=== PATIENT | female | born 1960 | race Caucasian/White ===

== ENCOUNTER 2017-06-02 10:55 | Day surgery (SDC) | payer BC ==
[2017-06-01 08:13] VITALS: BMI 18.8
[~2017-06-02 10:55] MED LIST: LACTATED RINGERS 1,000 ML IV ONE; LIDOCAINE 1% 20 ML VIAL (10MG/ML) FOR IV START INTRADERMA PRN
[2017-06-02] MEDS ORDERED: LACTATED RINGERS 1,000 ML IV ONE (11:48)
[2017-06-02 11:49] VITALS: TEMP 98.4
[2017-06-02] MEDS ORDERED: PROPOFOL 10 MG/ML 20 ML VIAL IV ONE (12:21)
--- NOTE | 2017-06-02 12:41 | P.PCN ---
Date of Procedure: 06/02/17 Procedure(s) Performed: BRIEF HISTORY: Patient is a 56-year-old pleasant white female, scheduled for an elective colonoscopy as a part of evaluation of Hemoccult-positive stool. PROCEDURE PERFORMED: Colonoscopy with biopsy and snare polypectomy. PREOPERATIVE DIAGNOSIS: Hemoccult positive stool. IV sedation per Anesthesia. PROCEDURE: After informed consent was obtained, the patient, was brought into the endoscopy unit. IV sedation was administered by Anesthesia under continuous monitoring. Digital rectal examination was normal. Initially the Olympus CF- 160 flexible video colonoscope was then inserted in the rectum, gradually advanced into the cecum without any difficulty. Careful examination was performed as the scope was gradually being withdrawn. Ileocecal valve and the appendiceal orifice were visualized and appeared normal. Prep was excellent. Mucosa of the cecum, ascending colon, transverse colon, descending colon, appeared normal. There are scattered sigmoidal diverticula seen. In the sigmoid colon there were patchy areas of erythema noted and biopsies were done from this area. There were 2 polyps noted in the sigmoid colon one measuring 1 cm in size and was removed by snare polypectomy and the other polyp was more like a thickened mucosal fold measuring 1-2 cm, which was inflamed and was also removed by snare polypectomy. The rest of the sigmoid colon, and rectum appeared normal. Retroflexion was performed in the rectum and no lesions were seen. The patient tolerated the procedure well. IMPRESSION: 1 cm sigmoid colon polyp status post polypectomy Patchy areas of erythema with inflamed appearing mucosa noted in the sigmoid colon between 20-40 cm from the anal verge and these areas were biopsied. Scattered sigmoid diverticulosis RECOMMENDATIONS: Findings of this examination were discussed with the patient as well as a family. She was advised to have a follow with the biopsy results. If the biopsy shows a tubular adenoma she can have a repeat colonoscopy in 3 years.
[2017-06-02 13:14] VITALS: BP 131/82; PULSE 57; RESP 16
== END 2017-06-02 13:21 | disposition home or self-care (01) ==
LOC: ORWHC2ENDO 10:55
PROVIDERS: ATTEND Internal Medicine Gastroenterology
DX: D12.5 Benign neoplasm of sigmoid colon (principal); K57.30 Diverticulosis of large intestine without perforation or abscess without bleeding; I10 Essential (primary) hypertension; F17.210 Nicotine dependence, cigarettes, uncomplicated; L53.9 Erythematous condition, unspecified; M19.90 Unspecified osteoarthritis, unspecified site; Z91.048 Other nonmedicinal substance allergy status; Z79.891 Long term (current) use of opiate analgesic; Z79.899 Other long term (current) drug therapy
CPT/HCPCS: 88305; 45385; 45380; J2704

== ENCOUNTER 2017-09-08 10:09 | Emergency (ER) | payer BC ==
[2017-09-08 10:31] VITALS: BP 161/88; PULSE 60; RESP 20; TEMP 98
--- NOTE | 2017-09-08 12:24 | XR ---
EXAMINATION TYPE: XR humerus LT DATE OF EXAM: 09/08/2017 CLINICAL HISTORY: Fall injury with pain. TECHNIQUE: Two views of the left humerus are obtained. COMPARISON: None. FINDINGS: Osseous structures are somewhat demineralized. There is no acute fracture or dislocation s een in the left humerus. The left shoulder and elbow joints appear within normal limits. The overly ing soft tissue appears within normal limits. IMPRESSION: No acute fracture or dislocation is evident in the left humerus.
--- NOTE | 2017-09-08 12:53 | ED ---
General Adult HPI - General Chief complaint: Extremity Injury, Upper Stated complaint: Shoulder Injury Time Seen by Provider: 09/08/17 11:28 Source: patient, family, RN notes reviewed Mode of arrival: ambulatory Limitations: no limitations - History of Present Illness Initial comments: Chief complaint and history of present illness this is a 56-year-old female with complaint of discomfort to her proximal lateral left humerus. You have the deltoid muscle. Patient reports last night she was walking her dog which is a big dog. It pulled on her and pulled her over onto her shoulder. Denies any head or neck or other injuries. She does take Vicodin 7.5 mg for chronic arthritic pain. Patient presents with decreased range of motion in this area. - Related Data Home Medications Medication Instructions Recorded Confirmed Hydrocodone/Acetaminophen 1 tab PO QID PRN 06/01/17 09/08/17 [Hydrocodon-Acetaminoph 7.5-325] Valsartan/Hydrochlorothiazide 1 tab PO DAILY 06/01/17 09/08/17 [Valsartan-Hctz 320-25 mg Tab] amLODIPine [Norvasc] 2.5 mg PO DAILY 06/01/17 09/08/17 Glucosamine/Chondro Kuhn A [Cosamin 1 tab PO DAILY 09/08/17 09/08/17 Ds Tablet] Allergies Allergy/AdvReac Type Severity Reaction Status Date / Time Iodinated Contrast- Oral and AdvReac Vomiting Verified 09/08/17 11:51 IV Dye [Iodinated Contrast Media - IV Dye] iodine AdvReac Vomiting Verified 09/08/17 11:51 Review of Systems ROS Statement: Those systems with pertinent positive or pertinent negative responses have been documented in the HPI. Review of systems no other complaints no headache chest pain shows breath GI/ problems no neuro deficits. All systems were reviewed. Past medical problems significant for hypertension, osteoarthritis, rheumatoid arthritis, she had rectal bleeding followed up by colonoscopy was reported by family to be negative. Surgeries D&C, tonsillectomy. Family history mother had breast cancer. The patient has been getting her mammograms. Her surgeries tonsillectomy and D&C. Patient has ALLERGIES to iodine both IV and oral. She does smoke strongly encouraged to stop denies alcohol use. ROS Other: All systems not noted in ROS Statement are negative. Past Medical History Past Medical History: Hypertension, Osteoarthritis (OA), Rheumatoid Arthritis ( RA) Additional Past Medical History / Comment(s): occ rectal bleeding, History of Any Multi-Drug Resistant Organisms: None Reported Past Surgical History: Tonsillectomy Additional Past Surgical History / Comment(s): D&C, Past Anesthesia/Blood Transfusion Reactions: No Reported Reaction Past Psychological History: No Psychological Hx Reported Smoking Status: Current every day smoker Past Alcohol Use History: None Reported Past Drug Use History: None Reported - Past Family History Mother Family Medical History: Cancer General Exam - General Exam Comments Initial Comments: General: The patient is awake and alert, here with a complaint of pain to the proximal left humerus. Vital signs temperature 90.0 pulse 60. Respiratory rate 20 pulse ox on percent room air blood pressure 161/88 Eye: Pupils are equal, round and reactive to light, extra-ocular movements are intact ; there is normal conjunctiva bilaterally. No signs of icterus. Neck: The neck is supple, there is no tenderness or JVD. Cardiovascular: There is a regular rate and rhythm. No murmur, rub or gallop is appreciated. Respiratory: Lungs are clear to auscultation, respirations are non-labored, breath sounds are equal. No wheezes, stridor, rales, or rhonchi. Gastrointestinal: Soft, non-distended, non-tender abdomen without masses or organomegaly noted. There is no rebound or guarding present. No CVA tenderness. Bowel sounds are unremarkable. Back: There is no tenderness to palpation in the midline. There is no obvious deformity. No rashes noted. Musculoskeletal: All extremities normal except for discomfort to the proximal left humerus. Over the deltoid muscle. Pain with palpation. Pain with active movement. Significantly less discomfort with passive range of motion testing. Neurovascular status to hands intact. No pain to the elbow or forearm. No pain to the collarbone or scapula or neck. Neurological: No neuro deficits Skin: Skin is warm and dry and no rashes or lesions are noted. Limitations: no limitations Course Vital Signs 09/08/17 10:29 Temperature 98.0 F Pulse Rate 60 Respiratory 20 Rate Blood Pressure 161/88 O2 Sat by Pulse 100 Oximetry Medical Decision Making - Medical Decision Making Medical decision making; with 56-year-old female who was pulled off balance onto her left shoulder by her big dog. X-ray of the shoulder was done and reviewed by radiologist his impression is no acute fracture dislocation is evident in the left humerus as read by Dr. simon. The patient be placed in a sling for comfort and advised to use it every half an hour. Continue with home medications and add ibuprofen or naproxen if she is allowed to take these medications. Otherwise if shoulder pain persists to follow-up with family physician and on-call or so Disposition Clinical Impression: Left shoulder strain Disposition: HOME SELF-CARE Condition: Fair Instructions: Shoulder Sprain (ED) Additional Instructions: Wear sling for comfort. Remember to exercise shoulder area several times per hour. Continue with home pain medication and if needed ibuprofen. Allowed to take it. Take it with food. Follow-up with your family doctor and on-call or so if you don't have an orthopedic surgeon. Is patient prescribed a controlled substance at d/c from ED?: No Referrals: Calvin Kaiser MD [Primary Care Provider] - 1-2 days Demetris Taylor DO [Doctor of Osteopathic Medicine] - 1-2 days Time of Disposition: 12:54
== END 2017-09-08 13:14 | disposition home or self-care (01) ==
LOC: EC 10:09
DX: S46.912A Strain of unspecified muscle, fascia and tendon at shoulder and upper arm level, left arm, initial encounter (principal); I10 Essential (primary) hypertension; M06.9 Rheumatoid arthritis, unspecified; F17.200 Nicotine dependence, unspecified, uncomplicated; Z79.899 Other long term (current) drug therapy; Z91.041 Radiographic dye allergy status; Z91.048 Other nonmedicinal substance allergy status; X50.9XXA Other and unspecified overexertion or strenuous movements or postures, initial encounter; Y93.K1 Activity, walking an animal
CPT/HCPCS: 99283

== ENCOUNTER → 2019-08-30 | Outpatient (CLI) | payer BC ==
[2019-08-30 12:49] LABS: Basophils # (A) 0.1 k/uL (0-0.2); Basophils % (A) 1 %; Eosinophils # (A) 0.1 k/uL (0-0.7); Eosinophils % (A) 1 %; HGB 11.9 gm/dL (11.4-16.0); Lymphocytes # (A) 0.9 k/uL (1.0-4.8); Lymphocytes % (A) 11 %; MCH 36.4 pg (25.0-35.0); MCHC 33.2 g/dL (31.0-37.0); MCV 109.6 fL (80.0-100.0); Macrocytosis Moderate; Mean Platelet Volume 6.9; Monocytes # (A) 0.5 k/uL (0-1.0); Monocytes % (A) 6 %; Neutrophils # (A) 6.6 k/uL (1.3-7.7); Neutrophils % (A) 78 %; Platelet Count 356 k/uL (150-450); RBC 3.28 m/uL (3.80-5.40); RDW 12.3 % (11.5-15.5); WBC 8.4 k/uL (3.8-10.6)
[2019-08-30 12:58] LABS: Appearance,Urine Cloudy (Clear); Bilirubin,Urine 1+ (Negative); Blood,Urine Small (Negative); Color,Urine Yellow; Glucose,Urine (UA) Negative (Negative); Hyaline Casts,Urine 51 /lpf (0-2); Ketones,Urine Trace (Negative); Leukocyte Esterase,Urine Negative (Negative); Mucus,Urine Rare /hpf; Nitrite,Urine Negative (Negative); PH, Urine 5.5 (5.0-8.0); Protein,Urine 1+ (Negative); RBC,Urine 8 /hpf (0-5); Specific Gravity,Urine 1.027 (1.001-1.035); Squamous Epithelial Cell,Urine 6 /hpf (0-4); WBC,Urine 2 /hpf (0-5)
[2019-08-30 18:43] LABS: African American GFR (CKD) 81.1 (60.0-200.0); Albumin 4.4 g/dL (3.80-4.90); Anion Gap 8.7 mmol/L (4.00-12.00); BUN/Creat Ratio 11.11 Ratio (12.00-20.00); Calcium 9.4 mg/dL (8.7-10.3); Carbon Dioxide 26.3 mmol/L (21.6-31.8); Chol/HDL Ratio 2.55; Globulin 2.2 g/dL (1.6-3.3); LDL Cholesterol,Calculated 55.6 mg/dL (0.0-131.0); Potassium 4.3 mmol/L (3.5-5.5); Total Protein 6.6 g/dL (6.2-8.2); VLDL Calculation 31.4 mg/dL (5.00-40.00)
== END | disposition home or self-care (01) ==
LOC: LABWHC1 12:03
PROVIDERS: ATTEND Internal Medicine
DX: I10 Essential (primary) hypertension (principal); E55.9 Vitamin D deficiency, unspecified
CPT/HCPCS: 36415; 80053; 80061; 81001; 82306; 85025

== ENCOUNTER → 2019-10-22 | Outpatient (CLI) | payer BC ==
--- NOTE | 2019-10-22 18:07 | CTL ---
EXAMINATION TYPE: CT Low Dose Lung DATE OF EXAM ORDERED: 10/22/2019 HISTORY: . Lung cancer screening CT DLP: 39.[address] CTDI: 1 mGy Automated exposure control for dose reduction was used. SCREENING VISIT: Initial COMPARISON: None TECHNIQUE: Low dose computed tomography scan was performed through the chest at 1 mm thick sections a nd reconstructed images in the coronal plane at [address] DIAGNOSTIC QUALITY: Satisfactory FINDINGS: LUNG NODULES: Present, detailed below: There is a 0.3 cm density at the peripheral right apex. Series 4 image 59. A tiny area of increased densities in the anterior right upper lung field measuring 0.1 cm. Series 4 image 69. LUNGS: COPD: Severity: None Fibrosis: Severity: None Lymph nodes: None Other findings: None RIGHT PLEURAL SPACE: Effusion: None Calcification: None Thickening: None Pneumothorax: None LEFT PLEURAL SPACE: Effusion: None Calcification: None Thickening: None Pneumothorax: None HEART: Heart Size: Normal Coronary calcification: Moderate Pericardial effusion: None OTHER FINDINGS: Upper abdomen: Unremarkable Bony thorax: Normal Supraclavicular region: Normal Other: Ascending thoracic aorta at the level the main pulmonary artery measures 3.3 cm. The main pul monary artery at the bifurcation measures 2.5 cm. IMPRESSION: 1. Benign findings FOLLOW UP CT CHEST RECOMMENDATION: Follow-up low-dose CT chest [address] LUNG RAD: Lung-Rad 2 Benign Appearance or Behavior
== END | disposition home or self-care (01) ==
LOC: RADCTMAIN 08:01
PROVIDERS: ATTEND Internal Medicine
DX: Z12.2 Encounter for screening for malignant neoplasm of respiratory organs (principal); Z87.891 Personal history of nicotine dependence

== ENCOUNTER 2020-02-24 09:45 | Day surgery (SDC) | payer BC ==
[2020-02-21 12:21] VITALS: BMI 17.6
[~2020-02-24 09:45] MED LIST changes: -LACTATED RINGERS 1,000 ML IV ONE; +LACTATED RINGERS 1,000 ML IV SCH; +LIDOCAINE 1% (10MG/ML) FOR IV START INTRADERMA PRN; -LIDOCAINE 1% 20 ML VIAL (10MG/ML) FOR IV START INTRADERMA PRN
[2020-02-24 10:11] VITALS: TEMP 97.8
[2020-02-24] MEDS ORDERED: LACTATED RINGERS 1,000 ML IV ONE (10:12)
[2020-02-24] MEDS ORDERED: PROPOFOL 10 MG/ML 20 ML VIAL IV ONE (11:04)
[2020-02-24] MEDS ORDERED: LIDOCAINE 1% INJ 10MG/ML (20 ML MDV) ONE (11:04)
--- NOTE | 2020-02-24 11:19 | P.PCN ---
Date of Procedure: 02/24/20 Procedure(s) Performed: BRIEF HISTORY: Patient is a 59-year-old, pleasant, 8 female scheduled for an upper endoscopy as a part of evaluation of intermittent dysphagia to solids and epigastric pain for the last several months duration.. PROCEDURE PERFORMED: Esophagogastroduodenoscopy biopsy and dilation. PREOPERATIVE DIAGNOSIS: Epigastric pain/intermittent dysphagia to solids. IV sedation per anesthesia. PROCEDURE: After informed consent was obtained, the patient was brought into the endoscopy unit. IV sedation was administered by Anesthesia under continuous monitoring. Initially the Olympus GIF-140 video endoscope was inserted into the mouth. Esophagus intubated without any difficulty. It was gradually advanced into the stomach and duodenum and carefully examined. The bulb and the second part of the duodenum appeared normal. The scope at this time was withdrawn to the stomach, adequately insufflated with air, and upon careful examination, mucosa of the antrum had mild gastritis and biopsies were done from this area. The, body, cardia and the fundus appeared normal. The scope was then withdrawn into the esophagus. Small hiatal hernia noted. The GE junction was located at 39 cm from the incisors. Distal esophageal Schatzki's ring identified which was dilated using 15-18 mm TTS balloon in a sequential fashion for 90 seconds. There were linear erosions in the distal esophagus and superficial ulceration consistent with LA grade C reflux esophagitis. The rest of the esophagus appeared normal and the patient tolerated the procedure well. IMPRESSION: 1. Distal esophageal Schatzki's ring status post balloon dilation using 15-18 mm TTS balloon as described above. 2. Small hiatal hernia with linear erosions in the distal esophagus consistent with LA grade C reflux esophagitis 3. Mild antral gastritis. RECOMMENDATIONS: The findings of this examination were discussed with the patient as well as a family. She was advised to be on a clear liquid diet for lunch. He was started on Protonix 40 mg daily half hour before bedtime and follow antireflux measures..
[2020-02-24 11:27] VITALS: RESP 16
[2020-02-24 11:43] VITALS: BP 125/84; PULSE 81
== END 2020-02-24 12:05 | disposition home or self-care (01) ==
LOC: ORWHC2ENDO 09:45
PROVIDERS: ATTEND Internal Medicine Gastroenterology
DX: K22.2 Esophageal obstruction (principal); K29.50 Unspecified chronic gastritis without bleeding; K20.0 Eosinophilic esophagitis; K44.9 Diaphragmatic hernia without obstruction or gangrene; I10 Essential (primary) hypertension; F17.200 Nicotine dependence, unspecified, uncomplicated; K21.9 Gastro-esophageal reflux disease without esophagitis; Z97.2 Presence of dental prosthetic device (complete) (partial); Z79.891 Long term (current) use of opiate analgesic; Z79.899 Other long term (current) drug therapy; Z91.041 Radiographic dye allergy status; Z91.048 Other nonmedicinal substance allergy status
CPT/HCPCS: 88305; 43239; 43249; J2001; J2704; C1726

== ENCOUNTER → 2020-02-25 | Outpatient (CLI) | payer BC ==
--- NOTE | 2020-02-25 12:38 | US ---
EXAMINATION TYPE: US liver DATE OF EXAM: 02/25/2020 COMPARISON: NONE CLINICAL HISTORY: R74.01 ELEVATED LIVER TRANSAMINASE. Abnormal labs. No prior surgeries. EXAM MEASUREMENTS: Liver Length: 13.2 cm Gallbladder Wall: 0.2 cm CBD: 0.6 cm Right Kidney: 1.0 x 4.2 x 4.2 cm Pancreas: wnl Liver: wnl Gallbladder: wnl Evidence for sonographic Martinez's sign: neg CBD: wnl Right Kidney: No hydronephrosis or masses seen IMPRESSION: 1. Visualized right upper quadrant ultrasound is unremarkable.
--- NOTE | 2020-02-26 11:54 | MM ---
Reason for exam: screening (asymptomatic). Last mammogram was performed 3 years ago. History: Patient is postmenopausal. Family history of breast cancer in mother at age 59. Physical Findings: A clinical breast exam by your physician is recommended on an annual basis and results should be correlated with mammographic findings. MG Screening Mammo w CAD Bilateral CC and MLO view(s) were taken. Prior study comparison: February 22, 2017, bilateral MG screening mammo w CAD. The breast tissue is extremely dense which could obscure a lesion on mammography. No significant changes when compared with prior studies. ASSESSMENT: Negative, BI-RAD 1 RECOMMENDATION: Routine screening mammogram of both breasts in 1 year.
== END | disposition home or self-care (01) ==
LOC: RADUSWWP 07:00
PROVIDERS: ATTEND Internal Medicine
DX: Z12.31 Encounter for screening mammogram for malignant neoplasm of breast (principal); R74.01 Elevation of levels of liver transaminase levels
CPT/HCPCS: 76705; 77067

== ENCOUNTER → 2020-12-09 | Day surgery (SDC) | payer BC ==
[2020-12-04 10:20] VITALS: BMI 17.4
[~2020-12-09] MED LIST changes: -LIDOCAINE 1% (10MG/ML) FOR IV START INTRADERMA PRN; +PROPOFOL 10 MG/ML 20 ML VIAL IV ONE
[2020-12-09 10:37] VITALS: TEMP 98.3
--- NOTE | 2020-12-09 11:52 | P.PCN ---
Date of Procedure: 12/09/20 Procedure(s) Performed: BRIEF HISTORY: Patient is a 60-year-old pleasant female scheduled for an elective colonoscopy as a part of evaluation of prior history of colon polyps. Last coloscopy was 3 years ago PROCEDURE PERFORMED: Colonoscopy and polypectomy and Endo Clip placement PREOPERATIVE DIAGNOSIS: History of colon polyps and change in bowel habits. IV sedation per Anesthesia. PROCEDURE: After informed consent was obtained, the patient, was brought into the endoscopy unit. IV sedation was administered by Anesthesia under continuous monitoring. Digital rectal examination was normal. Initially the Olympus CF-160 flexible video colonoscope was then inserted in the rectum, gradually advanced into the cecum without any difficulty. Careful examination was performed as the scope was gradually being withdrawn. Ileocecal valve and the appendiceal orifice were visualized and appeared normal. Prep was fair. Mucosa of the cecum, ascending colon, transverse colon, descending colon, normal. In the proximal; about 35 cm from the anal was there was a 2 cm broad-based polyp which had an appearance of a thickened mucosal fold which was removed by snare polypectomy followed by Endo Clip placement. In the rectal sigmoid colon there were 2 polyps measuring 1 cm and 2 cm once again with erythematous folds which were removed by snare polypectomy. In the mid rectum there was a 1 cm polyp removed by snare polypectomy. Scattered sigmoid diverticula seen. Retroflexion was performed in the rectum and no lesions were seen. The patient tolerated the procedure well. IMPRESSION: 2 cm broad-based proximal sigmoid colon polyp status post polypectomy followed by Endo Clip placement 2 cm and 1 cm rectosigmoid polyp status post polypectomy 1 cm rectal polyp status post polypectomy Scattered sigmoid diverticulosis RECOMMENDATIONS: Findings of this examination were discussed with the patient as well as her family. She was advised to follow with the biopsy shows. If the biopsy shows adenoma she can have a repeat colonoscopy in 3 years..
[2020-12-09 12:12] VITALS: BP 112/76; PULSE 81; RESP 16
== END ==
LOC: ORWHC2ENDO 10:00
PROVIDERS: ATTEND Internal Medicine Gastroenterology
DX: K57.30 Diverticulosis of large intestine without perforation or abscess without bleeding (principal); K62.1 Rectal polyp; D12.7 Benign neoplasm of rectosigmoid junction; I10 Essential (primary) hypertension; F17.200 Nicotine dependence, unspecified, uncomplicated; K21.9 Gastro-esophageal reflux disease without esophagitis; Z86.010 Personal history of colon polyps
CPT/HCPCS: 45385; 45382; 88305; J2704

== ENCOUNTER 2021-05-05 06:31 | Inpatient (IN) | payer BC ==
[2021-05-05] MEDS ORDERED: DEXTROSE 50% SYRINGE 50 ML IVP STA (06:49)
[2021-05-05 07:04] LABS: Glucose,Whole Blood <20 mg/dL (75-99)
[2021-05-05 07:04] LABS: Glucose,Whole Blood <20 mg/dL (75-99)
[2021-05-05 07:18] LABS: Albumin 1.5 g/dL (3.5-5.0); Total Bilirubin 2.1 mg/dL (0.2-1.3); Total Protein 3.6 g/dL (6.3-8.2)
[2021-05-05 07:19] LABS: Basophils % (A) 0 %; Eosinophils % (A) 1 %; HCT 26.1 % (34.0-46.0); HGB 8.5 gm/dL (11.4-16.0); Lymphocytes # (A) 0.3 k/uL (1.0-4.8); Lymphocytes % (A) 19 %; MCH 37.7 pg (25.0-35.0); MCHC 32.7 g/dL (31.0-37.0); MCV 115.4 fL (80.0-100.0); Macrocytosis Marked; Mean Platelet Volume 9.6; Monocytes # (A) 0.1 k/uL (0-1.0); Monocytes % (A) 5 %; Neutrophils # (A) 1.3 k/uL (1.3-7.7); Neutrophils % (A) 72 %; Platelet Count 157 k/uL (150-450); RBC 2.26 m/uL (3.80-5.40); RDW 13.5 % (11.5-15.5); WBC 1.8 k/uL (3.8-10.6)
[2021-05-05] MEDS ORDERED: SODIUM CHLORIDE 0.9% 1,000 ML IV ONE ×4 (07:19→23:42)
[2021-05-05 07:20] LABS: INR 2.3 (<1.2); Partial Thromboplastin Time 40.1 sec (22.0-30.0); Prothrombin Time 22.7 sec (9.0-12.0)
[2021-05-05] MEDS ORDERED: DEXTROSE 5%-0.45% NACL 1,000 ML IV ONE (07:20)
[2021-05-05 07:23] LABS: Glucose,Whole Blood <20 mg/dL (75-99)
[2021-05-05 07:24] LABS: Lactic Acid, Venous 5.3 mmol/L (0.7-2.0); Potassium 2.2 mmol/L (3.5-5.1)
[2021-05-05 07:26] LABS: Calcium 4.8 mg/dL (8.4-10.2); Magnesium 0.5 mg/dL (1.6-2.3)
--- NOTE | 2021-05-05 07:27 | ED ---
General Adult HPI - General Chief complaint: Weakness Stated complaint: Hypoglycemia Time Seen by Provider: 05/05/21 07:00 Source: patient, EMS, RN notes reviewed, old records reviewed Mode of arrival: EMS - History of Present Illness Initial comments: This is a 60-year-old female presents emergency Department because of weakness and decreased responsiveness this morning. states that a few weeks back she started having swelling of the legs and the ankles and becoming weaker and weaker over time. states yesterday he came home and she was so weak she was unable to get up out of bed she was also less responsive. Patient herself states she has had he aches starting yesterday and a sore throat. Patient states she has been vaccinated for COVID and didn't get the booster. Patient denies any fever but states she's freezing. Patient states she is a drinker and has been drinking every night except for the last 2 nights. Patient denies any nausea vomiting or diarrhea however patient does have abdominal pain which she states started yesterday and she states it is diffuse. Patient denies any dysuria hematuria urinary frequency. Patient denies any injury or trauma. - Related Data Home Medications Medication Instructions Recorded Confirmed Hydrocodone/Acetaminophen 1 tab PO QID PRN 06/01/17 05/05/21 [Hydrocodon-Acetaminoph 7.5-325] hydroCHLOROthiazide [Hydrodiuril] 12.5 mg PO DAILY 02/21/20 05/05/21 Pantoprazole [Protonix] 40 mg PO DAILY 05/05/21 05/05/21 amLODIPine [Norvasc] 5 mg PO DAILY 05/05/21 05/05/21 Allergies Allergy/AdvReac Type Severity Reaction Status Date / Time Iodinated Contrast Media AdvReac Vomiting Verified 05/05/21 09:01 [Iodinated Contrast Media - IV Dye] iodine AdvReac Vomiting Verified 05/05/21 09:01 Review of Systems ROS Statement: Those systems with pertinent positive or pertinent negative responses have been documented in the HPI. ROS Other: All systems not noted in ROS Statement are negative. Past Medical History Past Medical History: Hypertension, Osteoarthritis (OA), Rheumatoid Arthritis (RA) Additional Past Medical History / Comment(s): occ rectal bleeding, History of Any Multi-Drug Resistant Organisms: None Reported Past Surgical History: Tonsillectomy Additional Past Surgical History / Comment(s): D&C,. COLONOSCOPY Past Anesthesia/Blood Transfusion Reactions: No Reported Reaction Past Psychological History: No Psychological Hx Reported Smoking Status: Current every day smoker Past Alcohol Use History: None Reported Past Drug Use History: None Reported - Past Family History Mother Family Medical History: Cancer Father Family Medical History: Dementia Additional Family Medical History / Comment(s): no hx liver/renal disease General Exam - General Exam Comments Initial Comments: GENERAL: Patient is well-developed and well-nourished. Patient is nontoxic and well- hydrated and is in mild distress. ENT: Neck is soft and supple. No significant lymphadenopathy is noted. Oropharynx is clear. Moist mucous membranes. Neck has full range of motion without eliciting any pain. EYES: The sclera were anicteric and conjunctiva were pink and moist. Extraocular movements were intact and pupils were equal round and reactive to light. Eyelids were unremarkable. PULMONARY: Unlabored respirations. Good breath sounds bilaterally. No audible rales rhonchi or wheezing was noted. CARDIOVASCULAR: There is a regular rate and rhythm without any murmurs gallops or rubs. ABDOMEN: Abdomen is diffusely tender SKIN: Skin is clear with no lesions or rashes and otherwise unremarkable. NEUROLOGIC: Patient is alert and oriented x3. Cranial nerves II through XII are grossly intact. Motor and sensory are also intact. Normal speech, volume and content. Symmetrical smile. MUSCULOSKELETAL: Normal extremities with adequate strength and full range of motion. 2+ edema LYMPHATICS: No significant lymphadenopathy is noted PSYCHIATRIC: Normal psychiatric evaluation. Course Vital Signs 05/05/21 05/05/21 05/05/21 06:45 07:01 07:30 Temperature 94 F L Pulse Rate 84 102 H Respiratory 18 Rate Blood Pressure 88/62 97/75 O2 Sat by Pulse 100 92 L Oximetry 05/05/21 05/05/21 05/05/21 08:00 08:25 09:58 Temperature 95.5 F L Pulse Rate 105 H 95 Respiratory 18 18 Rate Blood Pressure 106/89 101/88 O2 Sat by Pulse 92 L 93 L Oximetry 05/05/21 05/05/21 05/05/21 10:03 11:11 11:21 Temperature 97.2 F L Pulse Rate 105 H 116 H 117 H Respiratory 20 22 22 Rate Blood Pressure 69/52 78/25 94/55 O2 Sat by Pulse 92 L 94 L 93 L Oximetry 05/05/21 05/05/21 11:58 12:43 Temperature 97.7 F 97.0 F L Pulse Rate 113 H 116 H Respiratory 22 20 Rate Blood Pressure 68/44 90/60 O2 Sat by Pulse 94 L 93 L Oximetry Procedures - Sepsis Sepsis Focused Exam #1 Time Sepsis Criteria Met: 10:52 Sepsis Focused Exam Date: 05/05/21 Sepsis Focused Exam Time: 11:45 Sepsis Focused Exam Complete: Yes Vital Signs & RN Notes Reviewed: Yes Capillary Refill: > 2 Seconds: Fingers Peripheral Pulses: Weak: Radial (R) Skin Color: Pallor Respiratory Exam: normal lung sounds Cardiovascular Exam: tachycardia Medical Decision Making - Medical Decision Making EKG shows sinus rhythm at 91 bpm MT interval is 123 QRS 65 Q-T intervals 346 QTC is 395. Patient's EKG shows no ST segment elevation or depression. Patient was given 2 L of normal saline however the patient remained hypotensive. Patient was started on Levophed. Patient was also given hydrocortisone as well as albumin. Patient was given 2 g of Rocephin. Patient's urine came back infected at 1052 and at this point time is considered septic shock. Spoke with Dr. Gomez she agreed to admit the patient admitted the patient wrote admitting orders I spoke with Dr. Norwood the patient will be ICU patient. - Lab Data Result diagrams: 05/06/21 03:55 05/06/21 03:55 Lab Results 05/05/21 05/05/21 05/05/21 Range/Units 06:36 06:49 06:49 WBC 1.8 L (3.8-10.6) k/uL RBC 2.26 L (3.80-5.40) m/uL Hgb 8.5 L (11.4-16.0) gm/dL Hct 26.1 L (34.0-46.0) % MCV 115.4 H (80.0-100.0) fL MCH 37.7 H (25.0-35.0) pg MCHC 32.7 (31.0-37.0) g/dL RDW 13.5 (11.5-15.5) % Plt Count 157 (150-450) k/uL MPV 9.6 Neutrophils % 72 % Lymphocytes % 19 % Monocytes % 5 % Eosinophils % 1 % Basophils % 0 % Neutrophils # 1.3 (1.3-7.7) k/uL Lymphocytes # 0.3 L (1.0-4.8) k/uL Monocytes # 0.1 (0-1.0) k/uL Eosinophils # 0.0 (0-0.7) k/uL Basophils # 0.0 (0-0.2) k/uL Differential Comment Manual Slide Review Performed Polychromasia Present Hypochromasia Macrocytosis Marked A Stomatocytes Present PT 22.7 H (9.0-12.0) sec INR 2.3 H (<1.2) APTT 40.1 H (22.0-30.0) sec Sodium (137-145) mmol/L Potassium (3.5-5.1) mmol/L Chloride (98-107) mmol/L Carbon Dioxide (22-30) mmol/L Anion Gap mmol/L BUN (7-17) mg/dL Creatinine (0.52-1.04) mg/dL Est GFR (CKD-EPI)AfAm (>60 ml/min/1.73 sqM) Est GFR (CKD-EPI)NonAf (>60 ml/min/1.73 sqM) Glucose (74-99) mg/dL POC Glucose (mg/dL) <20 L (75-99) mg/dL POC Glu Underwriting Clerks Supervisor ID Mamie Senior Lactic Ac Sepsis Rflx Plasma Lactic Acid Sadiq (0.7-2.0) mmol/L Calcium (8.4-10.2) mg/dL Magnesium (1.6-2.3) mg/dL Total Bilirubin (0.2-1.3) mg/dL AST (14-36) U/L ALT (4-34) U/L Alkaline Phosphatase (38-126) U/L Ammonia (<30) umol/L Troponin I (0.000-0.034) ng/mL Total Protein (6.3-8.2) g/dL Albumin (3.5-5.0) g/dL Urine Color Urine Appearance (Clear) Urine pH (5.0-8.0) Ur Specific [place] (1.001-1.035) Urine Protein (Negative) Urine Glucose (UA) (Negative) Urine Ketones (Negative) Urine Blood (Negative) Urine Nitrite (Negative) Urine Bilirubin (Negative) Urine Urobilinogen (<2.0) mg/dL Ur Leukocyte Esterase (Negative) Urine RBC (0-5) /hpf Urine WBC (0-5) /hpf Urine WBC Clumps (None) /hpf Ur Squamous Epith Cells (0-4) /hpf Amorphous Sediment (None) /hpf Urine Bacteria (None) /hpf Hyaline Casts (0-2) /lpf Urine Mucus (None) /hpf Serum Alcohol mg/dL Coronavirus (PCR) (Not Detectd) 05/05/21 05/05/21 05/05/21 Range/Units 06:49 06:49 06:49 WBC (3.8-10.6) k/uL RBC (3.80-5.40) m/uL Hgb (11.4-16.0) gm/dL Hct (34.0-46.0) % MCV (80.0-100.0) fL MCH (25.0-35.0) pg MCHC (31.0-37.0) g/dL RDW (11.5-15.5) % Plt Count (150-450) k/uL MPV Neutrophils % % Lymphocytes % % Monocytes % % Eosinophils % % Basophils % % Neutrophils # (1.3-7.7) k/uL Lymphocytes # (1.0-4.8) k/uL Monocytes # (0-1.0) k/uL Eosinophils # (0-0.7) k/uL Basophils # (0-0.2) k/uL Differential Comment Manual Slide Review Polychromasia Hypochromasia Macrocytosis Stomatocytes PT (9.0-12.0) sec INR (<1.2) APTT (22.0-30.0) sec Sodium 131 L (137-145) mmol/L Potassium 2.2 L* (3.5-5.1) mmol/L Chloride 104 (98-107) mmol/L Carbon Dioxide 19 L (22-30) mmol/L Anion Gap 8 mmol/L BUN 16 (7-17) mg/dL Creatinine 1.63 H (0.52-1.04) mg/dL Est GFR (CKD-EPI)AfAm 39 (>60 ml/min/1.73 sqM) Est GFR (CKD-EPI)NonAf 34 (>60 ml/min/1.73 sqM) Glucose 145 H (74-99) mg/dL POC Glucose (mg/dL) (75-99) mg/dL POC Glu Underwriting Clerks Supervisor ID Lactic Ac Sepsis Rflx Plasma Lactic Acid Sadiq 5.3 H* (0.7-2.0) mmol/L Calcium 4.8 L* (8.4-10.2) mg/dL Magnesium 0.5 L* (1.6-2.3) mg/dL Total Bilirubin 2.1 H (0.2-1.3) mg/dL AST 434 H (14-36) U/L ALT 98 H (4-34) U/L Alkaline Phosphatase 203 H (38-126) U/L Ammonia 24 (<30) umol/L Troponin I <0.012 (0.000-0.034) ng/mL Total Protein 3.6 L (6.3-8.2) g/dL Albumin 1.5 L (3.5-5.0) g/dL Urine Color Urine Appearance (Clear) Urine pH (5.0-8.0) Ur Specific [place] (1.001-1.035) Urine Protein (Negative) Urine Glucose (UA) (Negative) Urine Ketones (Negative) Urine Blood (Negative) Urine Nitrite (Negative) Urine Bilirubin (Negative) Urine Urobilinogen (<2.0) mg/dL Ur Leukocyte Esterase (Negative) Urine RBC (0-5) /hpf Urine WBC (0-5) /hpf Urine WBC Clumps (None) /hpf Ur Squamous Epith Cells (0-4) /hpf Amorphous Sediment (None) /hpf Urine Bacteria (None) /hpf Hyaline Casts (0-2) /lpf Urine Mucus (None) /hpf Serum Alcohol mg/dL Coronavirus (PCR) (Not Detectd) 05/05/21 05/05/21 05/05/21 Range/Units 06:54 07:21 07:24 WBC (3.8-10.6) k/uL RBC (3.80-5.40) m/uL Hgb (11.4-16.0) gm/dL Hct (34.0-46.0) % MCV (80.0-100.0) fL MCH (25.0-35.0) pg MCHC (31.0-37.0) g/dL RDW (11.5-15.5) % Plt Count (150-450) k/uL MPV Neutrophils % % Lymphocytes % % Monocytes % % Eosinophils % % Basophils % % Neutrophils # (1.3-7.7) k/uL Lymphocytes # (1.0-4.8) k/uL Monocytes # (0-1.0) k/uL Eosinophils # (0-0.7) k/uL Basophils # (0-0.2) k/uL Differential Comment Manual Slide Review Polychromasia Hypochromasia Macrocytosis Stomatocytes PT (9.0-12.0) sec INR (<1.2) APTT (22.0-30.0) sec Sodium (137-145) mmol/L Potassium (3.5-5.1) mmol/L Chloride (98-107) mmol/L Carbon Dioxide (22-30) mmol/L Anion Gap mmol/L BUN (7-17) mg/dL Creatinine (0.52-1.04) mg/dL Est GFR (CKD-EPI)AfAm (>60 ml/min/1.73 sqM) Est GFR (CKD-EPI)NonAf (>60 ml/min/1.73 sqM) Glucose (74-99) mg/dL POC Glucose (mg/dL) <20 L <20 L (75-99) mg/dL POC Glu Underwriting [employer]erks Supervisor Mamie Paredes Ashley Lactic Ac Sepsis Rflx Y Plasma Lactic Acid Sadiq (0.7-2.0) mmol/L Calcium (8.4-10.2) mg/dL Magnesium (1.6-2.3) mg/dL Total Bilirubin (0.2-1.3) mg/dL AST (14-36) U/L ALT (4-34) U/L Alkaline Phosphatase (38-126) U/L Ammonia (<30) umol/L Troponin I (0.000-0.034) ng/mL Total Protein (6.3-8.2) g/dL Albumin (3.5-5.0) g/dL Urine Color Urine Appearance (Clear) Urine pH (5.0-8.0) Ur Specific [place] (1.001-1.035) Urine Protein (Negative) Urine Glucose (UA) (Negative) Urine Ketones (Negative) Urine Blood (Negative) Urine Nitrite (Negative) Urine Bilirubin (Negative) Urine Urobilinogen (<2.0) mg/dL Ur Leukocyte Esterase (Negative) Urine RBC (0-5) /hpf Urine WBC (0-5) /hpf Urine WBC Clumps (None) /hpf Ur Squamous Epith Cells (0-4) /hpf Amorphous Sediment (None) /hpf Urine Bacteria (None) /hpf Hyaline Casts (0-2) /lpf Urine Mucus (None) /hpf Serum Alcohol mg/dL Coronavirus (PCR) (Not Detectd) 05/05/21 05/05/21 05/05/21 Range/Units 07:45 08:50 09:44 WBC (3.8-10.6) k/uL RBC (3.80-5.40) m/uL Hgb (11.4-16.0) gm/dL Hct (34.0-46.0) % MCV (80.0-100.0) fL MCH (25.0-35.0) pg MCHC (31.0-37.0) g/dL RDW (11.5-15.5) % Plt Count (150-450) k/uL MPV Neutrophils % % Lymphocytes % % Monocytes % % Eosinophils % % Basophils % % Neutrophils # (1.3-7.7) k/uL Lymphocytes # (1.0-4.8) k/uL Monocytes # (0-1.0) k/uL Eosinophils # (0-0.7) k/uL Basophils # (0-0.2) k/uL Differential Comment Manual Slide Review Polychromasia Hypochromasia Macrocytosis Stomatocytes PT (9.0-12.0) sec INR (<1.2) APTT (22.0-30.0) sec Sodium (137-145) mmol/L Potassium (3.5-5.1) mmol/L Chloride (98-107) mmol/L Carbon Dioxide (22-30) mmol/L Anion Gap mmol/L BUN (7-17) mg/dL Creatinine (0.52-1.04) mg/dL Est GFR (CKD-EPI)AfAm (>60 ml/min/1.73 sqM) Est GFR (CKD-EPI)NonAf (>60 ml/min/1.73 sqM) Glucose 157 H (74-99) mg/dL POC Glucose (mg/dL) (75-99) mg/dL POC Glu Underwriting Clerks Supervisor ID Lactic Ac Sepsis Rflx Plasma Lactic Acid Sadiq (0.7-2.0) mmol/L Calcium (8.4-10.2) mg/dL Magnesium (1.6-2.3) mg/dL Total Bilirubin (0.2-1.3) mg/dL AST (14-36) U/L ALT (4-34) U/L Alkaline Phosphatase (38-126) U/L Ammonia (<30) umol/L Troponin I (0.000-0.034) ng/mL Total Protein (6.3-8.2) g/dL Albumin (3.5-5.0) g/dL Urine Color Dark Brown Urine Appearance Turbid H (Clear) Urine pH 5.5 (5.0-8.0) Ur Specific [place] 1.022 (1.001-1.035) Urine Protein 2+ H (Negative) Urine Glucose (UA) Negative (Negative) Urine Ketones Negative (Negative) Urine Blood Moderate H (Negative) Urine Nitrite Negative (Negative) Urine Bilirubin 1+ H (Negative) Urine Urobilinogen 4.0 (<2.0) mg/dL Ur Leukocyte Esterase Large H (Negative) Urine RBC 14 H (0-5) /hpf Urine WBC >182 H (0-5) /hpf Urine WBC Clumps Occasional H (None) /hpf Ur Squamous Epith Cells 1 (0-4) /hpf Amorphous Sediment Occasional H (None) /hpf Urine Bacteria Moderate H (None) /hpf Hyaline Casts 9 H (0-2) /lpf Urine Mucus Rare H (None) /hpf Serum Alcohol <10 mg/dL Coronavirus (PCR) Not Detected (Not Detectd) 05/05/21 05/05/21 05/05/21 Range/Units 11:14 11:40 11:40 WBC 0.7 L* (3.8-10.6) k/uL RBC 2.75 L (3.80-5.40) m/uL Hgb 10.5 L (11.4-16.0) gm/dL Hct 32.7 L (34.0-46.0) % MCV 118.6 H (80.0-100.0) fL MCH 38.0 H (25.0-35.0) pg MCHC 32.0 (31.0-37.0) g/dL RDW 13.5 (11.5-15.5) % Plt Count (150-450) k/uL MPV 8.6 Neutrophils % % Lymphocytes % % Monocytes % % Eosinophils % % Basophils % % Neutrophils # (1.3-7.7) k/uL Lymphocytes # (1.0-4.8) k/uL Monocytes # (0-1.0) k/uL Eosinophils # (0-0.7) k/uL Basophils # (0-0.2) k/uL Differential Comment Manual Slide Review Performed Polychromasia Hypochromasia Slight Macrocytosis Marked A Stomatocytes PT (9.0-12.0) sec INR (<1.2) APTT (22.0-30.0) sec Sodium (137-145) mmol/L Potassium (3.5-5.1) mmol/L Chloride (98-107) mmol/L Carbon Dioxide (22-30) mmol/L Anion Gap mmol/L BUN (7-17) mg/dL Creatinine (0.52-1.04) mg/dL Est GFR (CKD-EPI)AfAm (>60 ml/min/1.73 sqM) Est GFR (CKD-EPI)NonAf (>60 ml/min/1.73 sqM) Glucose (74-99) mg/dL POC Glucose (mg/dL) 113 H (75-99) mg/dL POC Glu Underwriting Clerks Supervisor ID Carissa Solorzano Lactic Ac Sepsis Rflx Plasma Lactic Acid Sadiq 9.7 H* (0.7-2.0) mmol/L Calcium (8.4-10.2) mg/dL Magnesium (1.6-2.3) mg/dL Total Bilirubin (0.2-1.3) mg/dL AST (14-36) U/L ALT (4-34) U/L Alkaline Phosphatase (38-126) U/L Ammonia (<30) umol/L Troponin I (0.000-0.034) ng/mL Total Protein (6.3-8.2) g/dL Albumin (3.5-5.0) g/dL Urine Color Urine Appearance (Clear) Urine pH (5.0-8.0) Ur Specific [place] (1.001-1.035) Urine Protein (Negative) Urine Glucose (UA) (Negative) Urine Ketones (Negative) Urine Blood (Negative) Urine Nitrite (Negative) Urine Bilirubin (Negative) Urine Urobilinogen (<2.0) mg/dL Ur Leukocyte Esterase (Negative) Urine RBC (0-5) /hpf Urine WBC (0-5) /hpf Urine WBC Clumps (None) /hpf Ur Squamous Epith Cells (0-4) /hpf Amorphous Sediment (None) /hpf Urine Bacteria (None) /hpf Hyaline Casts (0-2) /lpf Urine Mucus (None) /hpf Serum Alcohol mg/dL Coronavirus (PCR) (Not Detectd) Critical Care Time Critical Care Time: Yes Total Critical Care Time: 35 Disposition Clinical Impression: Generalized weakness, Pedal edema, Ascites, ETOH abuse, Septic shock, Urinary tract infection, Renal insufficiency, Hypoglycemia, Anemia, Hypothermia, Hypomagnesemia, Hypokalemia, Hypocalcemia, Coagulopathy Disposition: ADMITTED IP TO THIS HOSP
[2021-05-05] MEDS ORDERED: CALCIUM CHLORIDE 100 MG/ML 10 ML SYRINGE IVP STA (07:28)
[2021-05-05] MEDS ORDERED: POTASSIUM CHLORIDE 20 MEQ in WATER FOR INJECTION 1 100ML.BAG IVPB STA (07:29)
[2021-05-05] MEDS ORDERED: cefTRIAXone IN SWFI 1,000 MG/10 ML SYRINGE IVP STA (07:29)
[2021-05-05] MEDS ORDERED: POTASSIUM CHLORIDE ER 20 MEQ TAB.ER PO STA (07:29)
[2021-05-05] MEDS: MAGNESIUM SULFATE-D5W PMX 1 GM in DEXTROSE/WATER 1 100ML.BAG IVPB SCH ×4 (08:11→13:44)
[2021-05-05 08:30] LABS: Alcohol <10 mg/dL; Glucose 157 mg/dL (74-99)
[2021-05-05 08:30] LABS: Polychromasia Present; Stomatocytes Present
--- NOTE | 2021-05-05 08:33 | XR ---
EXAMINATION TYPE: XR chest 2V DATE OF EXAM: 05/05/2021 COMPARISON: Low-dose lung screening CT October 22, 2019 HISTORY: Weakness. TECHNIQUE: Frontal and lateral views of the chest are obtained. FINDINGS: Background mild underlying emphysematous change with new small bilateral pleural effusions seen best on lateral view. The cardiac silhouette size remains within normal limits. The osseous structures are intact. IMPRESSION: New small bilateral pleural effusions.
--- NOTE | 2021-05-05 09:02 | CT ---
EXAMINATION TYPE: CT abdomen pelvis wo con DATE OF EXAM: 05/05/2021 COMPARISON: None HISTORY: Abdominal pain CT DLP: 380.7 mGycm Examination of the solid and hollow viscera is limited given the lack of contrast. FINDINGS: LUNG BASES: Bilateral pleural effusions with compressive atelectasis. LIVER/GB: There is hepatomegaly with underlying hepatic fatty infiltration. Ascites surrounds the [place] er. PANCREAS: No pancreatic mass identified. No inflammatory process seen. SPLEEN: No evidence for splenomegaly. No intrasplenic lesions seen. ADRENALS: No adrenal nodules identified. No evidence for thickening. KIDNEYS: No evidence for renal mass. Nonobstructing 3 mm calculus right kidney at its mid pole. No hy dronephrosis. Air is seen within the urinary bladder likely from recent catheterization. BOWEL: Appendix has a normal appearance. There is wall thickening of the small and large bowel which may reflect nonspecific enterocolitis. Sigmoid diverticulosis without diverticulitis. Lymph nodes: No evidence for adenopathy greater than 1 cm. Abdominal aorta: Atheromatous changes seen. No evidence for aneurysm. Genital organs: No significant abnormality. Other: No evidence of free air. Small amount of ascites surrounds the liver, left upper quadrant and within the pelvis. Subcutaneous edema May reflect early changes of anasarca. IMPRESSION: 1. Hepatomegaly with underlying hepatic steatosis. 2. Wall thickening of the small and large bowel may reflect nonspecific enterocolitis. 3. Ascites and pleural effusions with subcutaneous edema noted. Correlate for early changes of anasar ca. 4. Sigmoid diverticulosis without diverticulitis.
[2021-05-05] MEDS ORDERED: HYDROCORTISONE SUCCINATE 100 MG/2 ML VIAL IV STA (10:13)
[2021-05-05 10:38] LABS: Amorphous Sediment,Urine Occasional /hpf; Appearance,Urine Turbid (Clear); Bacteria,Urine Moderate /hpf; Bilirubin,Urine 1+ (Negative); Blood,Urine Moderate (Negative); Color,Urine Dark Brown; Glucose,Urine (UA) Negative (Negative); Hyaline Casts,Urine 9 /lpf (0-2); Ketones,Urine Negative (Negative); Leukocyte Esterase,Urine Large (Negative); Mucus,Urine Rare /hpf; Nitrite,Urine Negative (Negative); PH, Urine 5.5 (5.0-8.0); Protein,Urine 2+ (Negative); RBC,Urine 14 /hpf (0-5); Specific Gravity,Urine 1.022 (1.001-1.035); Squamous Epithelial Cell,Urine 1 /hpf (0-4); WBC,Urine >182 /hpf (0-5)
[2021-05-05] MEDS ORDERED: ALBUMIN HUMAN 25% 50 ML in EMPTY BAG 1 BAG IVPB ONE (10:40)
[2021-05-05] MEDS: ALBUMIN HUMAN 25% 50 ML in EMPTY BAG 1 BAG IVPB SCH ×2 (10:41→11:51)
--- NOTE | 2021-05-05 10:41 | US ---
EXAMINATION TYPE: US venous doppler duplex LE LT DATE OF EXAM: 05/05/2021 10:35 AM COMPARISON: NONE CLINICAL HISTORY: Calf pain. Left leg pain SIDE PERFORMED: Left TECHNIQUE: The lower extremity deep venous system is examined utilizing real time linear array sonog lucy with graded compression, doppler sonography and color-flow sonography. VESSELS IMAGED: Common Femoral Vein Deep Femoral Vein Greater Saphenous Vein * Femoral Vein Popliteal Vein Small Saphenous Vein * Proximal Calf Veins (* superficial vessels) Left Leg: Appears negative for DVT IMPRESSION: 1. No diagnostic evidence of DVT.
[2021-05-05] MEDS: NOREPINEPHRINE 4 MG in SODIUM CHLORIDE 0.9% 250 ML IV SCH ×3 (11:15→23:22)
[2021-05-05 11:16] LABS: Glucose,Whole Blood 113 mg/dL (75-99)
[2021-05-05] MEDS ORDERED: CALCIUM GLUCONATE 1 GM in SODIUM CHLORIDE 0.9% 100 ML IVPB ONE (11:45)
[2021-05-05 12:05] LABS: HCT 32.7 % (34.0-46.0); HGB 10.5 gm/dL (11.4-16.0); Hypochromasia Slight; MCV 118.6 fL (80.0-100.0); Macrocytosis Marked; Mean Platelet Volume 8.6; RBC 2.75 m/uL (3.80-5.40); RDW 13.5 % (11.5-15.5)
[2021-05-05] MEDS ORDERED: NALOXONE 0.4 MG/ML 1 ML VIAL IV PRN (12:07)
[2021-05-05 12:31] LABS: WBC 0.7 k/uL (3.8-10.6)
[2021-05-05 13:19] VITALS: BMI 17.4
[2021-05-05 13:46] LABS: Glucose,Whole Blood 91 mg/dL (75-99)
[2021-05-05 13:46] LABS: Glucose,Whole Blood 59 mg/dL (75-99)
[2021-05-05] MEDS ORDERED: ACETAMINOPHEN IV (For NPO) 1,000 MG in EMPTY BAG 1 BAG IVPB STA (14:08)
[2021-05-05] MEDS ORDERED: HYDROcodone/APAP 5-325MG 1 EACH TAB PO PRN (14:23)
[2021-05-05] MEDS ORDERED: ONDANSETRON 4 MG/2 ML VIAL IVP PRN (14:23)
[2021-05-05] MEDS ORDERED: MELATONIN 3 MG TABLET PO PRN (14:23)
--- NOTE | 2021-05-05 14:58 | P.HPIM ---
History of Present Illness H&P Date: 05/05/21 Chief Complaint: lethargy Patient is a 60 yo CF with a hx of HTN in the past no longer on medications who presetned to the ED with complaints of weakness and decreased responsiveness. In the ED she underwent an extensive evaluation. On arrival she was found have a blood pressure of 88/62. Initial laboratory analysis showed white blood cell count of 1.8, hemoglobin 8.5, platelets 157, INR 2.3, PTT 40.1, PTT 22.7, sodium 131, potassium 2.2, carbon dioxide 19, creatinine 1.63, initial glucose was less than 20. Lactic acid was significantly elevated at 5.3 and then elevated to 9.7. Calcium low at 4.8, magnesium 0.5, total bilirubin 2.1, AST 434, ALT 98. She was also found to have significant hypoalbuminemia at 1.5. Urinalysis was consistent with urinary tract infection. COVID-19 testing was negative. New small bilateral pleural effusions were noted on chest x-ray. CT abdomen and pelvis showed hepatomegaly with underlying hepatic steatosis, nonspecific ente rocolitis, ascites with pleural effusion, and sigmoid diverticulosis without diverticulitis. Left lower extremity was negative for DVT. In the ER she became increasingly hypotensive requiring Aleve affected drip. She received 2 L of normal saline as well as albumin. She was given a dose of Rocephin, Solu- Cortef, magnesium, and potassium in the ER. Arrangements were made for admission to the ICU. Patient seen and examined at bedside in the ER with present. She reports that she started feeling ill several days ago with nausea, vomiting, and diarrhea. She thought she had the flu. She never spiked a fever. Since then she has had increasing weakness. She has been struggling with lower extremity edema for quite some time. Initially she was placed on a diuretic by her primary care provider however she became hypotensive and it was not helping decrease the fluid and she therefore stopped it. She stopped drinking alcohol and smoking approximately 5 days ago. She had been smoking one half packs per day and drinking 6 glasses of wine daily. She was told that she had elevated liver enzymes in the past however testing was inconclusive. This happened again a second time. She then did not continue with testing. Questioning with mildly limited secondary to patient's shortness of breath. She adamantly denies any known history of liver disease or renal disease. Pertinent positives and negatives as discussed in HPI, a complete review of systems was performed and all other systems are negative. General: ill appearing, moderated distress, appears older than stated age Derm: warm, dry, flaking Head: atraumatic, normocephalic, symmetric Eyes: EOMI, no lid lag, anicteric sclera, pupils equal round reactive to light ENT: Nose and ears atraumatic, no thrush, no pharyngeal erythema Neck: No thyromegaly, no cervical lymphadenopathy, trachea midline, supple Mouth: no lip lesion, mucus membranes dry Cardiovascular: S1S2 tachy, no murmur, positive posterior tibial pulse bilateral, diffuse anasarca, capillary refill less than 2 seconds Lungs:ronchi bilateral, no rales, no wheeze, + accessory muscle use, + 3 word conversational dyspnea Abdominal: soft, + Tender to palpation RLQ, LUE, LLQ, no guarding, + hepatomegally, normal bowel sounds Ext: no gross muscle atrophy, muscle strength muscle strength 3-4 out of 5 in all 4 extremities, no contractures Neuro: CN II-XI grossly intact, light touch intact all 4 extremities, finger to nose within normal limits, Psych: lethargic, oriented, appropriate affect Assessment/plan: Urinary tract infection with septic shock enterocolitis- suspect due to bowel wall edema Lactic Acidosis - Rocephin - IVF - Levophed - ICU consult - await urine and blood cultures - suspect it will be hard to clear lactic acid due to liver disease Hypoglycemia - suspect due to cirrhosis with decreased oral intake and inability for gluconeogensis - accucheck q4 hours X 24 hours Coagulopathy - undetermined etiology - No signs of bruising or bleeding - repeat in AM Interstitial Fluid overload suspect related to cirrhosis/ Acute liver failure less likely Congestive heart failure Hyponatremia, due to fluid overload - supect advanced liver disease - check Hep Serology, SABRINA, AFP, Ciruloplasmin, CMV, smooth muscle, EBV, liver/kidney - follow closely - check echo - monitor colsely Elevated creatinine, JEYSON vs CKD with unknown baseline - Consult nephro - avoid nephrotoxic agent - strict I and O Hypokalemia, hypomagnesemia, hypocalcemia (corrected Ca 6.4) -Replace and recheck ETOH abuse tobacco absue - recently stopped - monitor for sings of withdrawal - IV thiamine Leukopenia and Anemia - check iron stuides, B12, folate, Retic count - repeat CBC in AM HX HTN - hold norvasc - hold HCTZ - follow BP The patient is admitted with an anticipated greater than 2 midnight stay for evaluation of UTI with septic shock. Surrogate decision-maker: CODE STATUS: Full DVT prophylaxis: SCDs Discussed with: Patient, , Dr. Machuca Anticipated discharge date: undetermined Anticipated discharge place: undetermined A total of 75 minutes was spent on the care of this complex patient more than 50% of the time was spent in counseling and care coordination. Past Medical History Past Medical History: Hypertension, Osteoarthritis (OA), Rheumatoid Arthritis (RA) Additional Past Medical History / Comment(s): Occ rectal bleeding, Schatxki ring, hiatal hernia, esophagitis, benign colon polyp, Hx of elevated liver enzymes History of Any Multi-Drug Resistant Organisms: None Reported Past Surgical History: Orthopedic Surgery, Tonsillectomy Additional Past Surgical History / Comment(s): L carpal tunnel release, D&C, EGD, colonoscopy Past Anesthesia/Blood Transfusion Reactions: No Reported Reaction Smoking Status: Current every day smoker Past Alcohol Use History: Daily (6 glasses of wine daily stopped 5 days prior to admission) - Past Family History Mother Family Medical History: Cancer Additional Family Medical History / Comment(s): Breast cancer, no hx liver/renal disease Father Family Medical History: Dementia Additional Family Medical History / Comment(s): no hx liver/renal disease Medications and Allergies Home Medications Medication Instructions Recorded Confirmed Type Hydrocodone/Acetaminophen 1 tab PO QID PRN 06/01/17 05/05/21 History [Hydrocodon-Acetaminoph 7.5-325] hydroCHLOROthiazide [Hydrodiuril] 12.5 mg PO DAILY 02/21/20 05/05/21 History Pantoprazole [Protonix] 40 mg PO DAILY 05/05/21 05/05/21 History amLODIPine [Norvasc] 5 mg PO DAILY 05/05/21 05/05/21 History Allergies Allergy/AdvReac Type Severity Reaction Status Date / Time Iodinated Contrast Media AdvReac Vomiting Verified 05/05/21 09:01 [Iodinated Contrast Media - IV Dye] iodine AdvReac Vomiting Verified 05/05/21 09:01 Physical Exam Osteopathic Statement: *. No significant issues noted on an osteopathic structural exam other than those noted in the History and Physical/Consult. Vitals: Vital Signs Temp Pulse Resp BP Pulse Ox 05/05/21 14:00 26 H 67/56 69 L 05/05/21 13:50 112 H 18 67/52 05/05/21 13:40 110 H 22 65/50 05/05/21 13:30 112 H 23 56/41 05/05/21 13:20 24 05/05/21 12:43 97.0 F L 116 H 20 90/60 93 L 05/05/21 11:58 97.7 F 113 H 22 68/44 94 L 05/05/21 11:21 117 H 22 94/55 93 L 05/05/21 11:11 97.2 F L 116 H 22 78/25 94 L 05/05/21 10:03 105 H 20 69/52 92 L 05/05/21 09:58 95.5 F L 05/05/21 08:25 95 18 101/88 93 L 05/05/21 08:00 105 H 18 106/89 92 L 05/05/21 07:30 102 H 18 97/75 92 L 05/05/21 07:01 84 100 05/05/21 06:45 94 F L 88/62 Intake and Output 05/04/21 05/05/21 05/05/21 22:59 06:59 14:59 Intake Total 119.035 Output Total 50 Balance 69.035 Intake: IV 75 Dextrose 5%-0.45% NaCl 1, 75 000 ml @ 75 mls/hr IV . [id number] [facility] Rx#:[id number] Intake, IV Titration 44.035 Amount Norepinephrine 4 mg In 44.035 Sodium Chloride 0.9% 250 ml @ 0.05 MCG/KG/MIN 9. 073 mls/hr IV .Q24H [facility] Rx#:[id number] Output: Urine 50 Other: Weight 47.627 kg 47.627 kg Results CBC & Chem 7: 05/05/21 11:40 05/05/21 07:45 Labs: Abnormal Lab Results - Last 24 Hours (Table) 05/05/21 05/05/21 05/05/21 Range/Units 06:36 06:49 06:49 WBC 1.8 L (3.8-10.6) k/uL RBC 2.26 L (3.80-5.40) m/uL Hgb 8.5 L (11.4-16.0) gm/dL Hct 26.1 L (34.0-46.0) % MCV 115.4 H (80.0-100.0) fL MCH 37.7 H (25.0-35.0) pg Lymphocytes # 0.3 L (1.0-4.8) k/uL Macrocytosis Marked A PT 22.7 H (9.0-12.0) sec INR 2.3 H (<1.2) APTT 40.1 H (22.0-30.0) sec Sodium (137-145) mmol/L Potassium (3.5-5.1) mmol/L Carbon Dioxide (22-30) mmol/L Creatinine (0.52-1.04) mg/dL Glucose (74-99) mg/dL POC Glucose (mg/dL) <20 L (75-99) mg/dL Plasma Lactic Acid Sadiq (0.7-2.0) mmol/L Calcium (8.4-10.2) mg/dL Magnesium (1.6-2.3) mg/dL Total Bilirubin (0.2-1.3) mg/dL AST (14-36) U/L ALT (4-34) U/L Alkaline Phosphatase (38-126) U/L Total Protein (6.3-8.2) g/dL Albumin (3.5-5.0) g/dL Urine Appearance (Clear) Urine Protein (Negative) Urine Blood (Negative) Urine Bilirubin (Negative) Ur Leukocyte Esterase (Negative) Urine RBC (0-5) /hpf Urine WBC (0-5) /hpf Urine WBC Clumps (None) /hpf Amorphous Sediment (None) /hpf Urine Bacteria (None) /hpf Hyaline Casts (0-2) /lpf Urine Mucus (None) /hpf 05/05/21 05/05/21 05/05/21 Range/Units 06:49 06:49 06:54 WBC (3.8-10.6) k/uL RBC (3.80-5.40) m/uL Hgb (11.4-16.0) gm/dL Hct (34.0-46.0) % MCV (80.0-100.0) fL MCH (25.0-35.0) pg Lymphocytes # (1.0-4.8) k/uL Macrocytosis PT (9.0-12.0) sec INR (<1.2) APTT (22.0-30.0) sec Sodium 131 L (137-145) mmol/L Potassium 2.2 L* (3.5-5.1) mmol/L Carbon Dioxide 19 L (22-30) mmol/L Creatinine 1.63 H (0.52-1.04) mg/dL Glucose 145 H (74-99) mg/dL POC Glucose (mg/dL) <20 L (75-99) mg/dL Plasma Lactic Acid Sadiq 5.3 H* (0.7-2.0) mmol/L Calcium 4.8 L* (8.4-10.2) mg/dL Magnesium 0.5 L* (1.6-2.3) mg/dL Total Bilirubin 2.1 H (0.2-1.3) mg/dL AST 434 H (14-36) U/L ALT 98 H (4-34) U/L Alkaline Phosphatase 203 H (38-126) U/L Total Protein 3.6 L (6.3-8.2) g/dL Albumin 1.5 L (3.5-5.0) g/dL Urine Appearance (Clear) Urine Protein (Negative) Urine Blood (Negative) Urine Bilirubin (Negative) Ur Leukocyte Esterase (Negative) Urine RBC (0-5) /hpf Urine WBC (0-5) /hpf Urine WBC Clumps (None) /hpf Amorphous Sediment (None) /hpf Urine Bacteria (None) /hpf Hyaline Casts (0-2) /lpf Urine Mucus (None) /hpf 05/05/21 05/05/21 05/05/21 Range/Units 07:21 07:45 09:44 WBC (3.8-10.6) k/uL RBC (3.80-5.40) m/uL Hgb (11.4-16.0) gm/dL Hct (34.0-46.0) % MCV (80.0-100.0) fL MCH (25.0-35.0) pg Lymphocytes # (1.0-4.8) k/uL Macrocytosis PT (9.0-12.0) sec INR (<1.2) APTT (22.0-30.0) sec Sodium (137-145) mmol/L Potassium (3.5-5.1) mmol/L Carbon Dioxide (22-30) mmol/L Creatinine (0.52-1.04) mg/dL Glucose 157 H (74-99) mg/dL POC Glucose (mg/dL) <20 L (75-99) mg/dL Plasma Lactic Acid Sadiq (0.7-2.0) mmol/L Calcium (8.4-10.2) mg/dL Magnesium (1.6-2.3) mg/dL Total Bilirubin (0.2-1.3) mg/dL AST (14-36) U/L ALT (4-34) U/L Alkaline Phosphatase (38-126) U/L Total Protein (6.3-8.2) g/dL Albumin (3.5-5.0) g/dL Urine Appearance Turbid H (Clear) Urine Protein 2+ H (Negative) Urine Blood Moderate H (Negative) Urine Bilirubin 1+ H (Negative) Ur Leukocyte Esterase Large H (Negative) Urine RBC 14 H (0-5) /hpf Urine WBC >182 H (0-5) /hpf Urine WBC Clumps Occasional H (None) /hpf Amorphous Sediment Occasional H (None) /hpf Urine Bacteria Moderate H (None) /hpf Hyaline Casts 9 H (0-2) /lpf Urine Mucus Rare H (None) /hpf 05/05/21 05/05/21 05/05/21 Range/Units 11:14 11:40 11:40 WBC 0.7 L* (3.8-10.6) k/uL RBC 2.75 L (3.80-5.40) m/uL Hgb 10.5 L (11.4-16.0) gm/dL Hct 32.7 L (34.0-46.0) % MCV 118.6 H (80.0-100.0) fL MCH 38.0 H (25.0-35.0) pg Lymphocytes # (1.0-4.8) k/uL Macrocytosis Marked A PT (9.0-12.0) sec INR (<1.2) APTT (22.0-30.0) sec Sodium (137-145) mmol/L Potassium (3.5-5.1) mmol/L Carbon Dioxide (22-30) mmol/L Creatinine (0.52-1.04) mg/dL Glucose (74-99) mg/dL POC Glucose (mg/dL) 113 H (75-99) mg/dL Plasma Lactic Acid Sadiq 9.7 H* (0.7-2.0) mmol/L Calcium (8.4-10.2) mg/dL Magnesium (1.6-2.3) mg/dL Total Bilirubin (0.2-1.3) mg/dL AST (14-36) U/L ALT (4-34) U/L Alkaline Phosphatase (38-126) U/L Total Protein (6.3-8.2) g/dL Albumin (3.5-5.0) g/dL Urine Appearance (Clear) Urine Protein (Negative) Urine Blood (Negative) Urine Bilirubin (Negative) Ur Leukocyte Esterase (Negative) Urine RBC (0-5) /hpf Urine WBC (0-5) /hpf Urine WBC Clumps (None) /hpf Amorphous Sediment (None) /hpf Urine Bacteria (None) /hpf Hyaline Casts (0-2) /lpf Urine Mucus (None) /hpf 05/05/21 Range/Units 13:30 WBC (3.8-10.6) k/uL RBC (3.80-5.40) m/uL Hgb (11.4-16.0) gm/dL Hct (34.0-46.0) % MCV (80.0-100.0) fL MCH (25.0-35.0) pg Lymphocytes # (1.0-4.8) k/uL Macrocytosis PT (9.0-12.0) sec INR (<1.2) APTT (22.0-30.0) sec Sodium (137-145) mmol/L Potassium (3.5-5.1) mmol/L Carbon Dioxide (22-30) mmol/L Creatinine (0.52-1.04) mg/dL Glucose (74-99) mg/dL POC Glucose (mg/dL) 59 L (75-99) mg/dL Plasma Lactic Acid Sadiq (0.7-2.0) mmol/L Calcium (8.4-10.2) mg/dL Magnesium (1.6-2.3) mg/dL Total Bilirubin (0.2-1.3) mg/dL AST (14-36) U/L ALT (4-34) U/L Alkaline Phosphatase (38-126) U/L Total Protein (6.3-8.2) g/dL Albumin (3.5-5.0) g/dL Urine Appearance (Clear) Urine Protein (Negative) Urine Blood (Negative) Urine Bilirubin (Negative) Ur Leukocyte Esterase (Negative) Urine RBC (0-5) /hpf Urine WBC (0-5) /hpf Urine WBC Clumps (None) /hpf Amorphous Sediment (None) /hpf Urine Bacteria (None) /hpf Hyaline Casts (0-2) /lpf Urine Mucus (None) /hpf Thrombosis Risk Factor Assmnt - Choose All That Apply Any of the Below Risk Factors Present?: Yes Each Factor Represents 1 point: Medical pt on bed rest, Swollen legs (current) Other Risk Factors: Yes Each Risk Factor Represents 2 Points: Age 61-74 years, Patient confined to bed Other congenital or acquired thrombophilia - If yes, enter type in comment: No Thrombosis Risk Factor Assessment Total Risk Factor Score: 6 Thrombosis Risk Factor Assessment Level: High Risk
[2021-05-05] MEDS ORDERED: DEXTROSE 10% IN WATER 500 ML in EMPTY BAG 1 BAG IV SCH (15:00)
[2021-05-05] MEDS ORDERED: THIAMINE 100 MG/ML 2 ML VIAL IVP SCH (15:00)
--- NOTE | 2021-05-05 15:08 | P.CNPUL ---
History of Present Illness Consult date: 05/05/21 Requesting physician: Rand Gomez Reason for consult: other Chief complaint: Septic shock. History of present illness: Pulmonary consult dated 05/05/2021. 60-year-old female seen in the emergency room by Dr. Machuca. The patient apparently presented with weakness, and a low blood sugar. She was brought in by EMS. She apparently had poor responsiveness at home according to her . In addition, he mentioned that she was having some swelling of the legs and ankles, he was really unable to get out of bed. It turns that she is a very heavy drinker. She drinks a fifth of wine a day typically mixed in with fruit juice. She also will have mixed drinks from time to time. She apparently sees a family doctor in [place]. She apparently has been vaccinated for coronavirus. Has not had the booster. She apparently had significant electrolyte disturbances, as well as a urinary tract infection, and hypotension, and for that reason, was given a bed in the intensive care unit. She was started on norepinephrine in the emergency room. She apparently has a history of rheumatoid arthritis, hypertension, and osteoarthritis. She does smoke every day. She does drink every day. Currently, she is on norepinephrine at 0.25 mcg/kg/m, nasal O2 at 4 L, and D5 with half normal saline at 75 mL an hour. She received 3 L of fluid in the emergency department. White count 0.7, hemoglobin 10.5, hematocrit 32.7, and platelet count is pending. Lactic acid was 9.7. Urine was dark brown and turbid. There is 2+ protein, moderate blood, large leukocyte esterase, 14 RBCs, greater than 182 WBCs, occasional white blood cell clumps, and moderate bacteria. Is placed on Rocephin for urinary tract infection. Sodium 131, potassium 2.2, chlorides 104, CO2 19, anion gap 8, BUN 16, creatinine 1.63. PTT is 40.1. INR is 2.3. Calcium 4.8, magnesium 0.5, AST was 434 and ALT 98. Ammonia was 24. Albumin 1.5. Doppler study of the legs were negative. Chest x-ray shows small bilateral pleural effusions. Abdominal and pelvic CT showed hepatomegaly, hepatic steatosis, thickening of the small and large bowel, ascites and pleural effusion, and sigmoid diverticular disease. Review of Systems REVIEW OF SYSTEMS: CONSTITUTIONAL: Weakness. NEUROLOGIC: [ Negative.] HEENT: [ Negative.] CARDIAC: Lower extremity edema. PULMONARY: [Negative.] GI: [Negative.] : [Negative.] RHEUMATOLOGIC: [ Negative.] IMMUNOLOGIC: [ Negative.] ENDOCRINE: [Negative. ] DERMATOLOGIC: [Negative.] Past Medical History Past Medical History: Hypertension, Osteoarthritis (OA), Rheumatoid Arthritis (RA) Additional Past Medical History / Comment(s): Occ rectal bleeding, Schatxki ring, hiatal hernia, esophagitis, benign colon polyp History of Any Multi-Drug Resistant Organisms: None Reported Past Surgical History: Orthopedic Surgery, Tonsillectomy Additional Past Surgical History / Comment(s): L carpal tunnel release, D&C, EGD, colonoscopy Past Anesthesia/Blood Transfusion Reactions: No Reported Reaction Smoking Status: Current every day smoker - Past Family History Mother Family Medical History: Cancer Additional Family Medical History / Comment(s): Breast cancer Father Family Medical History: Dementia Medications and Allergies Home Medications Medication Instructions Recorded Confirmed Type Hydrocodone/Acetaminophen 1 tab PO QID PRN 06/01/17 05/05/21 History [Hydrocodon-Acetaminoph 7.5-325] hydroCHLOROthiazide [Hydrodiuril] 12.5 mg PO DAILY 02/21/20 05/05/21 History Pantoprazole [Protonix] 40 mg PO DAILY 05/05/21 05/05/21 History amLODIPine [Norvasc] 5 mg PO DAILY 05/05/21 05/05/21 History Allergies Allergy/AdvReac Type Severity Reaction Status Date / Time Iodinated Contrast Media AdvReac Vomiting Verified 05/05/21 09:01 [Iodinated Contrast Media - IV Dye] iodine AdvReac Vomiting Verified 05/05/21 09:01 Physical Exam Osteopathic Statement: *. No significant issues noted on an osteopathic str uctural exam other than those noted in the History and Physical/Consult. Vitals: Vital Signs Temp Pulse Resp BP Pulse Ox 05/05/21 14:00 26 H 67/56 69 L 05/05/21 13:50 112 H 18 67/52 05/05/21 13:40 110 H 22 65/50 05/05/21 13:30 112 H 23 56/41 05/05/21 13:20 24 05/05/21 12:43 97.0 F L 116 H 20 90/60 93 L 05/05/21 11:58 97.7 F 113 H 22 68/44 94 L 05/05/21 11:21 117 H 22 94/55 93 L 05/05/21 11:11 97.2 F L 116 H 22 78/25 94 L 05/05/21 10:03 105 H 20 69/52 92 L 05/05/21 09:58 95.5 F L 05/05/21 08:25 95 18 101/88 93 L 05/05/21 08:00 105 H 18 106/89 92 L 05/05/21 07:30 102 H 18 97/75 92 L 05/05/21 07:01 84 100 05/05/21 06:45 94 F L 88/62 Intake and Output 05/04/21 05/05/21 05/05/21 22:59 06:59 14:59 Intake Total 119.035 Output Total 50 Balance 69.035 Intake: IV 75 Dextrose 5%-0.45% NaCl 1, 75 000 ml @ 75 mls/hr IV . [id number] [facility] Rx#:[id number] Intake, IV Titration 44.035 Amount Norepinephrine 4 mg In 44.035 Sodium Chloride 0.9% 250 ml @ 0.05 MCG/KG/MIN 9. 073 mls/hr IV .Q24H [facility] Rx#:[id number] Output: Urine 50 Other: Weight 47.627 kg 47.627 kg No acute distress, oriented 3. Somewhat lethargic but responsive. Currently on 4 L nasal O2. HEENT examination is grossly unremarkable. Neck supple. Full range of motion. No adenopathy thyromegaly or neck vein distention. Cardiovascular examination reveals regular rhythm rate. S1-S2 normal. No S3 or S4. No discernible murmur noted. Heart rate 112 bpm. Lungs reveal coarse bilateral rhonchi. No wheezes or crackles. Rest sounds equal. Abdomen soft bowel sounds are heard. No masses or tenderness. Extremities 1+ pitting edema particularly of the feet. Legs and feet are painful on palpation. Skin is without rash or lesion. Neurologic examination is brief but nonfocal. Results - Laboratory Findings CBC and BMP: 05/05/21 11:40 05/05/21 07:45 PT/INR, D-dimer PT 22.7 sec (9.0-12.0) H 05/05/21 06:49 INR 2.3 (<1.2) H 05/05/21 06:49 Abnormal lab findings: Abnormal Labs 05/05/21 05/05/21 05/05/21 06:36 06:49 06:49 WBC 1.8 L RBC 2.26 L Hgb 8.5 L Hct 26.1 L MCV 115.4 H MCH 37.7 H Lymphocytes # 0.3 L Macrocytosis Marked A PT 22.7 H INR 2.3 H APTT 40.1 H Sodium Potassium Carbon Dioxide Creatinine Glucose POC Glucose (mg/dL) <20 L Plasma Lactic Acid Sadiq Calcium Magnesium Total Bilirubin AST ALT Alkaline Phosphatase Total Protein Albumin Urine Appearance Urine Protein Urine Blood Urine Bilirubin Ur Leukocyte Esterase Urine RBC Urine WBC Urine WBC Clumps Amorphous Sediment Urine Bacteria Hyaline Casts Urine Mucus 05/05/21 05/05/21 05/05/21 06:49 06:49 06:54 WBC RBC Hgb Hct MCV MCH Lymphocytes # Macrocytosis PT INR APTT Sodium 131 L Potassium 2.2 L* Carbon Dioxide 19 L Creatinine 1.63 H Glucose 145 H POC Glucose (mg/dL) <20 L Plasma Lactic Acid Sadiq 5.3 H* Calcium 4.8 L* Magnesium 0.5 L* Total Bilirubin 2.1 H AST 434 H ALT 98 H Alkaline Phosphatase 203 H Total Protein 3.6 L Albumin 1.5 L Urine Appearance Urine Protein Urine Blood Urine Bilirubin Ur Leukocyte Esterase Urine RBC Urine WBC Urine WBC Clumps Amorphous Sediment Urine Bacteria Hyaline Casts Urine Mucus 05/05/21 05/05/21 05/05/21 07:21 07:45 09:44 WBC RBC Hgb Hct MCV MCH Lymphocytes # Macrocytosis PT INR APTT Sodium Potassium Carbon Dioxide Creatinine Glucose 157 H POC Glucose (mg/dL) <20 L Plasma Lactic Acid Sadiq Calcium Magnesium Total Bilirubin AST ALT Alkaline Phosphatase Total Protein Albumin Urine Appearance Turbid H Urine Protein 2+ H Urine Blood Moderate H Urine Bilirubin 1+ H Ur Leukocyte Esterase Large H Urine RBC 14 H Urine WBC >182 H Urine WBC Clumps Occasional H Amorphous Sediment Occasional H Urine Bacteria Moderate H Hyaline Casts 9 H Urine Mucus Rare H 05/05/21 05/05/21 05/05/21 11:14 11:40 11:40 WBC 0.7 L* RBC 2.75 L Hgb 10.5 L Hct 32.7 L MCV 118.6 H MCH 38.0 H Lymphocytes # Macrocytosis Marked A PT INR APTT Sodium Potassium Carbon Dioxide Creatinine Glucose POC Glucose (mg/dL) 113 H Plasma Lactic Acid Sadiq 9.7 H* Calcium Magnesium Total Bilirubin AST ALT Alkaline Phosphatase Total Protein Albumin Urine Appearance Urine Protein Urine Blood Urine Bilirubin Ur Leukocyte Esterase Urine RBC Urine WBC Urine WBC Clumps Amorphous Sediment Urine Bacteria Hyaline Casts Urine Mucus 05/05/21 13:30 WBC RBC Hgb Hct MCV MCH Lymphocytes # Macrocytosis PT INR APTT Sodium Potassium Carbon Dioxide Creatinine Glucose POC Glucose (mg/dL) 59 L Plasma Lactic Acid Sadiq Calcium Magnesium Total Bilirubin AST ALT Alkaline Phosphatase Total Protein Albumin Urine Appearance Urine Protein Urine Blood Urine Bilirubin Ur Leukocyte Esterase Urine RBC Urine WBC Urine WBC Clumps Amorphous Sediment Urine Bacteria Hyaline Casts Urine Mucus - Diagnostic Findings Chest x-ray: image reviewed Assessment and Plan Assessment: Urinary tract infection, with urosepsis and septic shock. History of chronic alcohol abuse, and chronic liver disease. Profound hypoalbuminemia, and lower extremity edema. History of hypertension. Chronic alcohol abuse. Chronic tobacco abuse. Profound electrolyte disturbances. Bicytopenia. Alcohol-induced quite neuropathy. Lactic acidosis secondary to infection/shock. Transaminitis secondary to alcoholic liver disease. Plan: Plan dated 05/05/2021. The patient's placed on Rocephin for her urinary tract infection. She's getting fluid resuscitation. She needs electrolyte replenishment. She is at high risk for alcohol withdraw syndrome. She likely has underlying COPD as well. We will continue to follow make recommendations where appropriate. Prognosis is guarded. She did receive 3 L of fluid in the emergency department. Additional recommendations and suggestions are forthcoming. Time with Patient: Greater than 30
[2021-05-05] MEDS ORDERED: SODIUM BICARB 8.4% 50 ML SYR (1 MEQ/ML) IV STA ×2 (16:01→23:42)
[2021-05-05 16:09] LABS: Glucose,Whole Blood 98 mg/dL (75-99)
[2021-05-05 16:32] LABS: Ionized Calcium 3.7 mg/dL (4.5-5.3)
[2021-05-05 16:36] LABS: Reticulocyte % 1.7 % (0.5-2.0)
[2021-05-05 16:42] LABS: Magnesium 1.6 mg/dL (1.6-2.3)
[2021-05-05 16:43] LABS: Calcium 5.8 mg/dL (8.4-10.2); Potassium 2.5 mmol/L (3.5-5.1)
[2021-05-05] MEDS ORDERED: POTASSIUM BICARBONATE/CIT AC 20 MEQ TABLET.EFF PO ONE (16:44)
[2021-05-05] MEDS ORDERED: CALCIUM GLUCONATE 2 GM in SODIUM CHLORIDE 0.9% 100 ML IVPB ONE ×2 (16:45→23:42)
[2021-05-05] MEDS ORDERED: MAGNESIUM OXIDE 400 MG TAB PO STA (16:47)
[2021-05-05] MEDS: POTASSIUM CHLORIDE 10 MEQ in WATER FOR INJECTION 1 100ML.BAG IVPB SCH ×4 (17:13→20:41)
[2021-05-05 18:32] LABS: ABG Base Excess -15.9 mmol/L; ABG HCO3 11 mmol/L (21-25); ABG Oxygen Saturation 95.1 % (94-97); ABG PCO2 24 mmHg (35-45); ABG PH 7.27 (7.35-7.45); ABG PO2 90 mmHg (83-108); ABG TCO2 12 mmol/L (19-24); Allen Test Performed? Yes
[2021-05-05] MEDS ORDERED: PIPERACILLIN-TAZOBACTAM 3.375 GM in SODIUM CHLORIDE 0.9% 100 ML IVPB ONE (19:00)
[2021-05-05] MEDS: HYDROCORTISONE SUCCINATE 100 MG/2 ML VIAL IV SCH (19:02)
[2021-05-05] MEDS ORDERED: DEXTROSE 5% IN WATER 1,000 ML with SODIUM BICARB (1 MEQ/ML) 150 ML IV SCH (19:30)
[2021-05-05 19:57] LABS: % Iron Saturation 90.19 (12.00-45.00); Iron 38 ug/dL (50-170); Total Iron Binding Capacity 42 ug/dL (228-460); Vitamin B12 >2000.0 pg/mL (200.0-944.0)
[2021-05-05] MEDS: SODIUM CHLORIDE 0.9% 150 ML with VASOPRESSIN 60 UNIT IV SCH ×2 (20:42)
[2021-05-05] MEDS: MAGNESIUM OXIDE 400 MG TAB PO SCH (20:53)
[2021-05-05 21:07] LABS: Hepatitis A Antibody IgM Nonreactive (Nonreactive); Hepatitis C IgG Antibody Nonreactive (Nonreactive)
[2021-05-05] MEDS ORDERED: propofoL 100 ML IV ONE (21:07)
[2021-05-05 21:48] LABS: Ceruloplasmin 7.3 mg/dL (20.0-60.0)
[2021-05-05 21:49] LABS: ABG Base Excess -28.8 mmol/L; ABG PCO2 40 mmHg (35-45); ABG PO2 228 mmHg (83-108); ABG TCO2 7 mmol/L (19-24)
--- NOTE | 2021-05-05 21:50 | XR ---
EXAMINATION TYPE: XR chest 1V portable DATE OF EXAM: 05/05/2021 COMPARISON: To the HISTORY: Respiratory failure TECHNIQUE: FINDINGS: Endotracheal tube is 3 cm from the omar. There is some mild pulmonary edema. Heart is bor derline enlarged. There are chest leads. There are no hilar masses. There is nasogastric tube in the stomach. IMPRESSION: There is mild pulmonary edema which is increased compared to exam this morning. Tubing in good position.
[2021-05-05 21:52] LABS: Alpha Fetoprotein, Tumor Mkr <1.82 ng/mL (0.00-7.90)
[2021-05-05 21:55] LABS: ABG HCO3 6 mmol/L (21-25); ABG PH <6.80 (7.35-7.45); Allen Test Performed? no
[2021-05-05 22:51] LABS: Glucose,Whole Blood 146 mg/dL (75-99)
[2021-05-05 23:03] LABS: Glucose,Whole Blood <20 mg/dL (75-99)
[2021-05-05 23:03] LABS: Glucose,Whole Blood <20 mg/dL (75-99)
[2021-05-05 23:13] LABS: Chloride 111 mmol/L (98-107); Potassium 5.7 mmol/L (3.5-5.1); Sodium 134 mmol/L (137-145)
[2021-05-05 23:14] LABS: Calcium 5.6 mg/dL (8.4-10.2); Carbon Dioxide <5 mmol/L (22-30)
[2021-05-05] MEDS ORDERED: PHYTONADIONE 10 MG in SODIUM CHLORIDE 0.9% 50 ML IVPB STA (23:42)
[2021-05-05] MEDS ORDERED: SODIUM CHLORIDE 0.9% 2,000 ML IV ONE (23:42)
[2021-05-05] MEDS ORDERED: SODIUM BICARB 8.4% 50 ML SYR (1 MEQ/ML) ONE (23:43)
[2021-05-05] MEDS ORDERED: EPINEPHrine 4 MG in DEXTROSE 5% IN WATER 250 ML IV SCH ×2 (23:45)
[2021-05-06 00:03] LABS: Glucose,Whole Blood 126 mg/dL (75-99)
--- NOTE | 2021-05-06 00:32 | P.EN ---
CODE BLUE note Activated at 2254. Arrived in the scene shortly after. Reviewed the chart and discussed the case with the RN. The patient developed bradycardia and subsequently PEA. ACLS protocol was immediately initiated and the patient was given IV push epinephrine 2, sodium bicarbonate IV push 1, and calcium chloride IV push 1 with ROSC at 2300 with sinus rhythm. Repeat labs ordered. Patient currently receiving multiple IV pressors including levophed and vasopressin. The sodium bicarbonate infusion rate was increased to 150 ml/hr. Time spent providing critical care for the patient: 35 minutes
[2021-05-06] MEDS: PIPERACILLIN-TAZOBACTAM 3.375 GM in SODIUM CHLORIDE 0.9% 100 ML IVPB SCH ×2 (01:00→10:40)
[2021-05-06] MEDS: NOREPINEPHRINE 4 MG in SODIUM CHLORIDE 0.9% 250 ML IV SCH ×5 (02:10→09:32)
[2021-05-06 03:57] LABS: Glucose,Whole Blood 126 mg/dL (75-99)
[2021-05-06 04:35] LABS: HCT 24.7 % (34.0-46.0); HGB 7.4 gm/dL (11.4-16.0); Hypochromasia Marked; MCHC 29.9 g/dL (31.0-37.0); Macrocytosis Marked; Mean Platelet Volume 10.4; RBC 1.94 m/uL (3.80-5.40); RDW 13.9 % (11.5-15.5)
[2021-05-06 04:36] LABS: INR 3.6 (<1.2); Partial Thromboplastin Time 91.8 sec (22.0-30.0); Prothrombin Time 35.6 sec (9.0-12.0)
[2021-05-06 04:37] LABS: Ionized Calcium 4.1 mg/dL (4.5-5.3)
[2021-05-06 04:38] LABS: MCV 127.2 fL (80.0-100.0)
[2021-05-06] MEDS: HYDROCORTISONE SUCCINATE 100 MG/2 ML VIAL IV SCH ×2 (04:41→10:39)
[2021-05-06 04:47] LABS: Albumin 1.1 g/dL (3.5-5.0); Magnesium 1.9 mg/dL (1.6-2.3); Potassium 4.7 mmol/L (3.5-5.1); Total Bilirubin 1.5 mg/dL (0.2-1.3); Total Protein 2.3 g/dL (6.3-8.2)
[2021-05-06 04:55] LABS: Band Neutrophils % 51 %; Lymphocytes # (M) 0.29 k/uL (1.0-4.8); Metamyelocytes # (M) 0.06 k/uL (0); Metamyelocytes % 2 %; Monocytes # (M) 0.12 k/uL (0-1.0); Neutrophils % (M) 33 %; Nucleated Red Blood Cells 4 /100 WBC (0-0); Total Cells Counted 200; WBC 2.9 k/uL (3.8-10.6)
[2021-05-06 04:56] LABS: Platelet Count 49 k/uL (150-450)
[2021-05-06 04:57] LABS: Polychromasia Present
[2021-05-06] MEDS: DEXTROSE 5% IN WATER 1,000 ML with SODIUM BICARB (1 MEQ/ML) 150 ML IV SCH ×3 (05:06→11:32)
[2021-05-06 05:17] LABS: ABG Base Excess -29.3 mmol/L; ABG Oxygen Saturation 96.3 % (94-97); ABG PCO2 29 mmHg (35-45); ABG PO2 157 mmHg (83-108); ABG TCO2 6 mmol/L (19-24); Glucose,Whole Blood 141 mg/dL (75-99)
[2021-05-06 05:21] LABS: ABG HCO3 5 mmol/L (21-25); ABG PH 6.83 (7.35-7.45); Allen Test Performed? no
[2021-05-06] MEDS ORDERED: SODIUM BICARB 8.4% 50 ML SYR (1 MEQ/ML) IV STA ×2 (05:48→06:04)
[2021-05-06] MEDS ORDERED: ALBUMIN HUMAN 25% 50 ML in EMPTY BAG 1 BAG IVPB ONE ×2 (06:00→10:00)
[2021-05-06] MEDS ORDERED: CALCIUM GLUCONATE 2 GM in SODIUM CHLORIDE 0.9% 100 ML IVPB ONE (06:00)
[2021-05-06] MEDS: SODIUM CHLORIDE 0.45% IV SCH ×2 (06:15→09:59)
[2021-05-06] MEDS ORDERED: MIDODRINE 5 MG TAB PO SCH (07:30)
--- NOTE | 2021-05-06 08:10 | P.EN ---
CODE BLUE Indication: PEA Arrived on Scene to find: CPR in progress Initial Rhythm: PEA Code Course: EPI 2, calcium gluconate 1, magnesium 2.5 mg, sodium bicarb 5 Total Down Time: 6 Vital signs reviewed General: non toxic, no distress, appears at stated age Eyes: Pupils not reactive but equal Cardiovascular: S1S2 reg, no murmur, positive posterior tibial pulse bilateral, Lungs: Course bs bilateral, no rhonchi, no rales , no accessory muscle use, + bleeding from ET tube, large amounts of blood secretions in canister, bleeding from all IV sites Ext: no gross muscle atrophy, diffuse ansarca, no contractures Assessment: UTI E coli bacteremia Septic SHock DIC Multiogan system dysfunction Hypomagnesemia Hypocalcemia Severe Lactic acidosis JEYSON Aucte liver failure Severe Proteincalorie malnutrition ETOH abuse Plan: D/W family confort measures, no code Increase Bicarb gtt to 300 cc/hr platelets 1 unit on hold Notified: Spoke with family at bedside. This is her 3rd code in 24 hours. Made aware that this illiness is not survivable. I suggested that she is made a DNR status as she will succumb to her sepsis and that I think that she has advanced cirrhosis underlying and is unable to clear lactic acid. A Total of 32 minutes of critical care time was spent on the complex care of this patient.
--- NOTE | 2021-05-06 08:53 | P.NPCON ---
History of Present Illness - Reason for Consult acute renal failure - History of Present Illness Reason for consultation: Acute kidney injury History of present illness: Patient is a 60-year-old female seen in renal consultation for acute kidney injury. patient baseline creatinine from August 2019 is 0.9 and is 1.75 today. Was 1.63 on admission yesterday. Patient was brought to the hospital due to decreased responsiveness and weakness. She was noted to have swelling in her extremities and ankles and was being followed by her primary care physician outpatient. She was also having flulike symptoms the last couple of days which are progressively worsening. She tested negative for coronavirus. Patient was noted to be extremely hypokalemic with a potassium level of 2.2 and magnesium level of 0.5. Both were replaced and were normal this morning. Patient is currently in septic shock with positive for E. coli. She is maintained on multiple vasopressors. She is also extremely acidotic with bicarb level of 5 this morning. She is maintained on bicarb drip and has also received over 10 A of sodium bicarb IV push overnight. Patient had a PEA arrest 3 times overnight and has now been made no code by the family members. She is currently intubated. Vital signs are unstable. HEENT: Intubated. Bleeding from the mouth noted. LUNGS: Breath sounds decreased. HEART: Tachycardic. ABDOMEN: No distention. EXTREMITITES: 1+ edema in lower extremity. Past Medical History Past Medical History: Hypertension, Osteoarthritis (OA), Rheumatoid Arthritis (RA) Additional Past Medical History / Comment(s): occ rectal bleeding, History of Any Multi-Drug Resistant Organisms: None Reported Past Surgical History: Tonsillectomy Additional Past Surgical History / Comment(s): D&C,. COLONOSCOPY Past Anesthesia/Blood Transfusion Reactions: No Reported Reaction Past Psychological History: No Psychological Hx Reported Smoking Status: Current every day smoker Past Alcohol Use History: None Reported Past Drug Use History: None Reported - Past Family History Mother Family Medical History: Cancer Additional Family Medical History / Comment(s): Breast cancer, no hx liver/renal disease Father Family Medical History: Dementia Additional Family Medical History / Comment(s): no hx liver/renal disease Medications and Allergies Home Medications Medication Instructions Recorded Confirmed Type Hydrocodone/Acetaminophen 1 tab PO QID PRN 06/01/17 05/05/21 History [Hydrocodon-Acetaminoph 7.5-325] hydroCHLOROthiazide [Hydrodiuril] 12.5 mg PO DAILY 02/21/20 05/05/21 History Pantoprazole [Protonix] 40 mg PO DAILY 05/05/21 05/05/21 History amLODIPine [Norvasc] 5 mg PO DAILY 05/05/21 05/05/21 History Allergies Allergy/AdvReac Type Severity Reaction Status Date / Time Iodinated Contrast Media AdvReac Vomiting Verified 05/05/21 09:01 [Iodinated Contrast Media - IV Dye] iodine AdvReac Vomiting Verified 05/05/21 09:01 Physical Exam Vitals: Vital Signs Temp Pulse Resp BP Pulse Ox 05/06/21 07:45 112 H 30 H 90/56 05/06/21 07:30 0 L 30 H 05/06/21 07:15 114 H 30 H 63/45 05/06/21 07:00 99 30 H 68/28 05/06/21 06:45 112 H 30 H 76/23 05/06/21 06:30 122 H 30 H 108/47 05/06/21 06:15 113 H 30 H 70/26 05/06/21 06:00 54 L 30 H 70/21 05/06/21 05:45 61 30 H 81/33 05/06/21 05:30 77 30 H 50/39 05/06/21 05:15 71 30 H 48/22 05/06/21 05:00 71 30 H 50/25 05/06/21 04:45 72 30 H 63/24 05/06/21 04:30 72 30 H 61/43 05/06/21 04:15 84 30 H 90/63 05/06/21 04:00 86 30 H 112/39 93 L 05/06/21 03:45 95 30 H 115/62 05/06/21 03:30 97 30 H 05/06/21 03:15 98 30 H 84/27 05/06/21 03:00 92.8 F L 104 H 30 H 05/06/21 02:45 104 H 30 H 49/27 05/06/21 02:30 105 H 30 H 78/31 05/06/21 02:15 105 H 30 H 78/31 05/06/21 02:00 104 H 30 H 129/77 05/06/21 01:45 102 H 30 H 68/39 02/17/22 01:30 103 H 30 H 47/22 05/06/21 01:15 105 H 30 H 68/24 05/06/21 01:00 105 H 30 H 108/74 05/06/21 00:45 106 H 30 H 05/06/21 00:34 105 H 33 H 05/06/21 00:30 112 H 30 H 05/06/21 00:15 115 H 31 H 77/56 05/06/21 00:00 110 H 30 H 95/67 93 L 05/05/21 23:45 112 H 30 H 71/54 05/05/21 23:30 113 H 25 H 84/60 05/05/21 23:15 110 H 26 H 88/29 05/05/21 23:00 115 H 24 05/05/21 22:45 65 26 H 47/21 05/05/21 22:30 80 26 H 68/44 05/05/21 22:15 78 24 89/70 05/05/21 22:00 76 25 H 72/46 93 L 05/05/21 21:45 78 25 H 72/46 05/05/21 21:30 89 24 51/32 05/05/21 21:15 76 19 91/53 05/05/21 21:00 76 20 81/54 05/05/21 20:45 78 22 82/53 05/05/21 20:30 85 14 83/48 05/05/21 20:15 106 H 18 80/54 05/05/21 20:00 96.6 F L 112 H 20 72/49 92 L 05/05/21 19:45 108 H 22 68/47 05/05/21 19:30 100 14 57/42 05/05/21 19:00 128 H 89/42 95 05/05/21 18:45 133 H 17 68/48 95 05/05/21 18:30 110 H 24 69/47 95 05/05/21 18:15 103 H 20 66/51 95 05/05/21 18:00 107 H 20 70/41 92 L 05/05/21 17:45 107 H 24 57/47 92 L 05/05/21 17:30 110 H 22 64/49 93 L 05/05/21 17:15 111 H 23 67/46 02/16/22 17:00 114 H 23 63/38 05/05/21 16:45 115 H 25 H 102/50 05/05/21 16:30 18 78/36 05/05/21 16:15 113 H 17 70/55 05/05/21 16:00 97.2 F L 111 H 26 H 70/55 95 05/05/21 15:45 28 H 62/45 94 L 05/05/21 15:30 28 H 69/52 05/05/21 15:15 110 H 19 56/45 05/05/21 15:00 111 H 17 63/43 94 L 05/05/21 14:45 112 H 26 H 66/47 05/05/21 14:30 111 H 28 H 68/47 05/05/21 14:15 114 H 27 H 73/56 05/05/21 14:00 26 H 67/56 69 L 05/05/21 13:50 112 H 18 67/52 05/05/21 13:40 110 H 22 65/50 05/05/21 13:30 112 H 23 56/41 05/05/21 13:20 24 05/05/21 12:43 97.0 F L 116 H 20 90/60 93 L 05/05/21 11:58 97.7 F 113 H 22 68/44 94 L 05/05/21 11:21 117 H 22 94/55 93 L 05/05/21 11:11 97.2 F L 116 H 22 78/25 94 L 05/05/21 10:03 105 H 20 69/52 92 L 05/05/21 09:58 95.5 F L Intake and Output 05/05/21 05/06/21 05/06/21 22:59 06:59 14:59 Intake Total 5276.325 6872.209 1409 Output Total 30 28 0 Balance 0565.297 5393.209 1409 Intake: IV 883 4649 409 Calcium Gluconate 2 gm In 100 100 Sodium Chloride 0.9% 100 ml @ 100 mls/hr IVPB ONCE ONE Rx#:[id number] Dextrose 5%-0.45% NaCl 1, 600 1125 150 000 ml @ 75 mls/hr IV . [id number] ONE Rx#:[id number] Fluid bolus 0.9 NaCl- 3000 Potassium IVPB 200 Pressure bag 3 24 9 Sodium Bicarbonate IVP 250 150 Vitamin K 50 Zosyn 80 100 Intake, IV Titration 167.219 7772.209 1000 Amount EPINEPHrine 4 mg In 5.209 Dextrose 5% in Water 250 ml @ 0.01 MCG/KG/MIN 1. 786 mls/hr IV .Q24H IRINA Rx#:[id number] Norepinephrine 4 mg In 049.449 7561 Sodium Chloride 0.9% 250 ml @ 0.05 MCG/KG/MIN 9. 073 mls/hr IV .Q24H IRINA Rx#:[id number] Sodium Chloride 0.45% 3, 1000 000 ml @ 1000 mls/hr IV . Q3H IRINA Rx#:[id number] propofoL 1,000 mg In 2.144 Empty Bag 1 bag @ Titrate IV .Q0M IRINA Rx#: [id number] Output: Urine 30 28 0 Other: Voiding Method Indwelling Catheter Indwelling Catheter Weight 63.8 kg ABP, PAP, CO, CI - Last 8 Hours Arterial Blood Pressure 115/94 Arterial Blood Pressure 73/59 Arterial Blood Pressure 74/59 Arterial Blood Pressure 74/65 Arterial Blood Pressure 87/67 Arterial Blood Pressure 80/62 Arterial Blood Pressure 100/72 Arterial Blood Pressure 52/37 Arterial Blood Pressure 53/39 Arterial Blood Pressure 51/39 Arterial Blood Pressure 54/38 Arterial Blood Pressure 54/40 Arterial Blood Pressure 55/41 Arterial Blood Pressure 53/40 Arterial Blood Pressure 60/44 Arterial Blood Pressure 64/48 Arterial Blood Pressure 64/50 Arterial Blood Pressure 67/52 Arterial Blood Pressure 66/51 Arterial Blood Pressure 68/52 Arterial Blood Pressure 68/52 Arterial Blood Pressure 69/53 Arterial Blood Pressure 68/54 Arterial Blood Pressure 69/55 Arterial Blood Pressure 75/56 Arterial Blood Pressure 76/59 Arterial Blood Pressure 77/57 Arterial Blood Pressure 78/61 Results - Lab Results Most recent lab results ABG pH 6.83 (7.35-7.45) L* 05/06/21 05:16 ABG pCO2 29 mmHg (35-45) L 05/06/21 05:16 ABG pO2 157 mmHg (83-108) H 05/06/21 05:16 ABG HCO3 5 mmol/L (21-25) L* 05/06/21 05:16 ABG O2 Saturation 96.3 % (94-97) 05/06/21 05:16 Calcium 6.0 mg/dL (8.4-10.2) L* 05/06/21 03:55 Magnesium 1.9 mg/dL (1.6-2.3) 05/06/21 03:55 05/06/21 03:55 05/06/21 03:55 Assessment and Plan Plan: Assessment: 1. Acute kidney injury secondary to ATN secondary to septic shock. Creatinine 1.75 today. Oliguric. 2. Severe anion gap metabolic acidosis secondary to acute kidney injury and lactic acidosis. 3. Hypokalemia from diuretics, poor intake and hypomagnesemia. Replaced. Better. 4. Severe hypomagnesemia from diuretics and poor intake. Replaced. Better. 5. Septic shock secondary to E. coli bacteremia on multiple vasopressors. Concern for DIC. 6. Status post PA arrest. Plan: Maintain bicarb drip. Maintain vasopressor support. Patient is hemodynamically unstable to tolerate any form of renal replacement therapy at this time. Case discussed with the family members. Prognosis guarded. She is now on no code. Thank you for the consultation. I will continue to follow the patient with you during her hospital stay.
--- NOTE | 2021-05-06 08:59 | XR ---
EXAMINATION TYPE: XR chest 1V portable DATE OF EXAM: 05/06/2021 COMPARISON: 05/05/2021 HISTORY: Tube placement TECHNIQUE: Single frontal view of the chest is obtained. FINDINGS: ET and NG tube stable. There is bilateral infiltrate and pleural effusion with cardiomegal y. Diffuse interstitial pattern. Underlying COPD suspected. Ectasia of the aorta. Findings are stable . IMPRESSION: Diffuse pleural-parenchymal changes stable correlate for CHF versus diffuse pneumonia.
[2021-05-06] MEDS ORDERED: CHLORHEXIDINE GLUCONATE 15 ML CUP MUCOUS MEM SCH (09:00)
[2021-05-06] MEDS ORDERED: PANTOPRAZOLE 40 MG TABLET PO SCH (09:00)
--- NOTE | 2021-05-06 09:00 | ECHOF ---
Referral Reason:chf MEASUREMENTS -------- HEIGHT: 165.1 cm WEIGHT: 63.5 kg BP: 108/47 IVSd: 0.8 cm (0.6 - 1.1) LVIDd: 3.4 cm (3.9 - 5.3) LVPWd: 0.8 cm (0.6 - 1.1) IVSs: 0.9 cm LVIDs: 3.0 cm LVPWs: 0.8 cm LAESV Index (A-L): 11.35 ml/m Ao Diam: 3.1 cm (2.0 - 3.7) AV Cusp: 1.5 cm (1.5 - 2.6) LA Diam: 2.7 cm (2.7 - 3.8) MV E Geovanny: 0.55 m/s MV DecT: 79 ms MV A Geovanny: 0.59 m/s MV E/A Ratio: 0.92 RAP: 5.00 mmHg RVSP: 9.49 mmHg FINDINGS -------- Sinus rhythm. This was a technically adequate study. Pt. on a vent. The left ventricular size is normal. Left ventricular wall thickness is normal. Overall left vent ricular systolic function is severely impaired with, an EF between 20 - 25 %. Possible Takotsubo. Basal Segment Tracie only. The right ventricle is normal in size. Normal LA size by volume 22+/-6 ml/m2. The right atrial size is normal. The aortic valve was not well visualized. The mitral valve leaflets are mildly thickened. There is trace mitral regurgitation. The tricuspid valve appears structurally normal. Trace tricuspid regurgitation present. Right erma tricular systolic pressure is normal at < 35 mmHg. The pulmonic valve was not well visualized. The aortic root size is normal. IVC Not well visulized. There is a small, generalized pericardial effusion present. CONCLUSIONS -------- 1. Pt. on a vent. 2. Left ventricular wall thickness is normal. 3. Overall left ventricular systolic function is severely impaired with, an EF between 20 - 25 %. 4. Possible Takotsubo. 5. Basal Segment Tracie only. 6. Normal LA size by volume 22+/-6 ml/m2. 7. The mitral valve leaflets are mildly thickened. 8. There is trace mitral regurgitation. 9. Trace tricuspid regurgitation present. 10. There is a small, generalized pericardial effusion present. LABORER [place]: Megan Jacobsen RDCS
[2021-05-06 09:05] VITALS: TEMP 94.3
--- NOTE | 2021-05-06 09:22 | P.PN ---
Subjective Progress Note Date: 05/06/21 Principal diagnosis: Respiratory Failure. Pulmonary consult dated 05/05/2021. 60-year-old female seen in the emergency room by Dr. Machuca. The patient apparently presented with weakness, and a low blood sugar. She was brought in by EMS. She apparently had poor responsiveness at home according to her . In addition, he mentioned that she was having some swelling of the legs and ankles, he was really unable to get out of bed. It turns that she is a very heavy drinker. She drinks a fifth of wine a day typically mixed in with fruit juice. She also will have mixed drinks from time to time. She apparently sees a family doctor in [place]. She apparently has been vaccinated for coronavirus. Has not had the booster. She apparently had significant electrolyte disturbances, as well as a urinary tract infection, and hypotension, and for that reason, was given a bed in the intensive care unit. She was started on norepinephrine in the emergency room. She apparently has a history of rheumatoid arthritis, hypertension, and osteoarthritis. She does smoke every day. She does drink every day. Currently, she is on norepinephrine at 0.25 mcg/kg/m, nasal O2 at 4 L, and D5 with half normal saline at 75 mL an hour. She received 3 L of fluid in the emergency department. White count 0.7, hemoglobin 10.5, hematocrit 32.7, and platelet count is pending. Lactic acid was 9.7. Urine was dark brown and turbid. There is 2+ protein, moderate blood, large leukocyte esterase, 14 RBCs, greater than 182 WBCs, occasional white blood cell clumps, and moderate bacteria. Is placed on Rocephin for urinary tract infection. Sodium 131, potassium 2.2, chlorides 104, CO2 19, anion gap 8, BUN 16, creatinine 1.63. PTT is 40.1. INR is 2.3. Calcium 4.8, magnesium 0.5, AST was 434 and ALT 98. Ammonia was 24. Albumin 1.5. Doppler study of the legs were negative. Chest x-ray shows small bilateral pleural effusions. Abdominal and pelvic CT showed hepatomegaly, hepatic steatosis, thickening of the small and large bowel, ascites and pleural effusion, and sigmoid diverticular disease. Progress note dated 05/06/2021. 60-year-old female seen yesterday in consultation. She was initially seen in the emergency department by Dr. Machuca. She came in with weakness and hypoglycemia. In addition, she had hypotension, and was started on norepinephrine. Currently, the patient is doing very poorly. Last night, she took a turn for the worst. She ended up requiring intubation and mechanical ventilation, and is subsequently had 3 episodes of cardiopulmonary arrest with resuscitation and eventual return of spontaneous circulation. The last episode occurred this morning where she was found to have pulseless electrical activity. She remains on the ventilator. I did have the opportunity to speak to the , Sergey. The patient was made a DO NOT RESUSCITATE. Current vent settings include the volume assist control, rate 30, tidal volume 450, FiO2 100 %, PEEP of 5. Blood gases show pO2 157, pCO2 28, and 6.82. Patient is on vasopressin at 0.04 units per minute, epinephrine 0.2 mcg/kg/m, and norepinephrine at 1.05 mcg/kg/m. Patient's getting D5W with 3 ampules of sodium bicarbonate at 300 mL an hour. The patient also received 3 L of half normal saline. He's also received calcium, and albumin. In addition, the patient did receive multiple boluses of sodium bicarbonate. Despite all of that, she is doing very poorly suspect she will not survive this illness. I did again speak to the this morning and her son. White count 2.9, hematoma 7.4, hematocrit 24.7, platelet count 49,000. ET 35.6 INR 3.6 PTT 91.8 and fibrinogen is 180. Sodium 137, potassium 4.7, chlorides 112, CO2 6, anion gap 19, BUN 11, creatinine 1.75. Lactic acid is 16.8. Calcium is 6. The patient's bilirubin is 1.5 AST is 212 and ALT is 56. Albumin is only 1.1. Blood cultures are showing gram-negative bacilli and also Escherichia coli. Chest x-ray shows diffuse bilateral infiltrates. Objective - Vital Signs Vital signs: Vital Signs Temp 92.8 F L 05/06/21 03:00 Pulse 112 H 05/06/21 07:45 Resp 30 H 05/06/21 07:45 BP 90/56 05/06/21 07:45 Pulse Ox 93 L 05/06/21 04:00 Intake & Output 05/05/21 05/06/21 05/06/21 18:59 06:59 18:59 Intake Total 630.912 7425.555 1409 Output Total 80 28 0 Balance 044.106 4634.555 1409 Weight 47.627 kg 63.8 kg Intake: IV 375 5232 409 Calcium Gluconate 2 gm In 100 100 Sodium Chloride 0.9% 100 ml @ 100 mls/hr IVPB ONCE ONE Rx#:[id number] Dextrose 5%-0.45% NaCl 1, 375 1425 150 000 ml @ 75 mls/hr IV . [id number] ONE Rx#:[id number] Fluid bolus 0.9 NaCl- 3000 Potassium IVPB 200 Pressure bag 27 9 Sodium Bicarbonate IVP 250 150 Vitamin K 50 Zosyn 180 Intake, IV Titration 264.614 3940.555 1000 Amount EPINEPHrine 4 mg In 5.209 Dextrose 5% in Water 250 ml @ 0.01 MCG/KG/MIN 1. 786 mls/hr IV .Q24H [facility] Rx#:[id number] Norepinephrine 4 mg In 981.952 2974.202 Sodium Chloride 0.9% 250 ml @ 0.05 MCG/KG/MIN 9. 073 mls/hr IV .Q24H [facility] Rx#:[id number] Sodium Chloride 0.45% 3, 1000 000 ml @ 1000 mls/hr IV . Q3H [facility] Rx#:[id number] propofoL 1,000 mg In 2.144 Empty Bag 1 bag @ Titrate IV .Q0M [facility] Rx#: [id number] Output: Urine 80 28 0 Other: Voiding Method Indwelling Catheter Indwelling Catheter ABP, PAP, CO, CI - Last Documented Arterial Blood Pressure 115/94 - Exam Poorly responsive, currently intubated with an orally placed endotracheal tube and NG tube. HEENT examination is grossly unremarkable. Scleral icterus is noted. Neck supple. Full range of motion. No adenopathy thyromegaly or neck vein distention. Cardiovascular examination reveals regular rhythm rate. S1-S2 normal. No S3 or S4. No discernible murmur noted. Heart rate 105 bpm. Heart sounds are distant. Lungs reveal coarse bilateral rhonchi. No wheezes. Diffuse scattered crackles. Breath sounds are equal. Abdomen soft bowel sounds are heard. No masses or tenderness. Extremities 1+ pitting edema particularly of the feet. Legs and feet are painful on palpation. Skin is without rash or lesion. The patient is jaundiced. Neurologic examination reveals a poorly responsive/unresponsive female. - Labs CBC & Chem 7: 05/06/21 03:55 05/06/21 03:55 Labs: Abnormal Lab Results - Last 24 Hours (Table) 05/05/21 05/05/21 05/05/21 Range/Units 09:44 11:14 11:40 WBC (3.8-10.6) k/uL RBC (3.80-5.40) m/uL Hgb (11.4-16.0) gm/dL Hct (34.0-46.0) % MCV (80.0-100.0) fL MCH (25.0-35.0) pg MCHC (31.0-37.0) g/dL Plt Count (150-450) k/uL Lymphocytes # (Manual) (1.0-4.8) k/uL Metamyelocytes # (Man) (0) k/uL Nucleated RBCs (0-0) /100 WBC Macrocytosis PT (9.0-12.0) sec INR (<1.2) APTT (22.0-30.0) sec Fibrinogen (200-500) mg/dL ABG pH (7.35-7.45) ABG pCO2 (35-45) mmHg ABG pO2 (83-108) mmHg ABG HCO3 (21-25) mmol/L ABG Total CO2 (19-24) mmol/L Sodium (137-145) mmol/L Potassium (3.5-5.1) mmol/L Chloride (98-107) mmol/L Carbon Dioxide (22-30) mmol/L Creatinine (0.52-1.04) mg/dL Glucose (74-99) mg/dL POC Glucose (mg/dL) 113 H (75-99) mg/dL Plasma Lactic Acid Sadiq 9.7 H* (0.7-2.0) mmol/L Calcium (8.4-10.2) mg/dL Ionized Calcium Ailin (4.5-5.3) mg/dL Iron (50-170) ug/dL TIBC (228-460) ug/dL % Saturation (12.00-45.00) Transferrin (204.0-354.0) mg/dL Ferritin (10.0-291.0) ng/mL Total Bilirubin (0.2-1.3) mg/dL AST (14-36) U/L ALT (4-34) U/L Total Protein (6.3-8.2) g/dL Albumin (3.5-5.0) g/dL Ceruloplasmin (20.0-60.0) mg/dL Vitamin B12 (200.0-944.0) pg/mL Urine Appearance Turbid H (Clear) Urine Protein 2+ H (Negative) Urine Blood Moderate H (Negative) Urine Bilirubin 1+ H (Negative) Ur Leukocyte Esterase Large H (Negative) Urine RBC 14 H (0-5) /hpf Urine WBC >182 H (0-5) /hpf Urine WBC Clumps Occasional H (None) /hpf Amorphous Sediment Occasional H (None) /hpf Urine Bacteria Moderate H (None) /hpf Hyaline Casts 9 H (0-2) /lpf Urine Mucus Rare H (None) /hpf 05/05/21 05/05/21 05/05/21 Range/Units 11:40 13:30 15:28 WBC 0.7 L* (3.8-10.6) k/uL RBC 2.75 L (3.80-5.40) m/uL Hgb 10.5 L (11.4-16.0) gm/dL Hct 32.7 L (34.0-46.0) % MCV 118.6 H (80.0-100.0) fL MCH 38.0 H (25.0-35.0) pg MCHC (31.0-37.0) g/dL Plt Count (150-450) k/uL Lymphocytes # (Manual) (1.0-4.8) k/uL Metamyelocytes # (Man) (0) k/uL Nucleated RBCs (0-0) /100 WBC Macrocytosis Marked A PT (9.0-12.0) sec INR (<1.2) APTT (22.0-30.0) sec Fibrinogen (200-500) mg/dL ABG pH (7.35-7.45) ABG pCO2 (35-45) mmHg ABG pO2 (83-108) mmHg ABG HCO3 (21-25) mmol/L ABG Total CO2 (19-24) mmol/L Sodium (137-145) mmol/L Potassium (3.5-5.1) mmol/L Chloride (98-107) mmol/L Carbon Dioxide (22-30) mmol/L Creatinine (0.52-1.04) mg/dL Glucose (74-99) mg/dL POC Glucose (mg/dL) 59 L (75-99) mg/dL Plasma Lactic Acid Sadiq 12.4 H* (0.7-2.0) mmol/L Calcium (8.4-10.2) mg/dL Ionized Calcium Ailin (4.5-5.3) mg/dL Iron (50-170) ug/dL TIBC (228-460) ug/dL % Saturation (12.00-45.00) Transferrin (204.0-354.0) mg/dL Ferritin (10.0-291.0) ng/mL Total Bilirubin (0.2-1.3) mg/dL AST (14-36) U/L ALT (4-34) U/L Total Protein (6.3-8.2) g/dL Albumin (3.5-5.0) g/dL Ceruloplasmin (20.0-60.0) mg/dL Vitamin B12 (200.0-944.0) pg/mL Urine Appearance (Clear) Urine Protein (Negative) Urine Blood (Negative) Urine Bilirubin (Negative) Ur Leukocyte Esterase (Negative) Urine RBC (0-5) /hpf Urine WBC (0-5) /hpf Urine WBC Clumps (None) /hpf Amorphous Sediment (None) /hpf Urine Bacteria (None) /hpf Hyaline Casts (0-2) /lpf Urine Mucus (None) /hpf 05/05/21 05/05/21 05/05/21 Range/Units 16:13 16:18 16:18 WBC (3.8-10.6) k/uL RBC (3.80-5.40) m/uL Hgb (11.4-16.0) gm/dL Hct (34.0-46.0) % MCV (80.0-100.0) fL MCH (25.0-35.0) pg MCHC (31.0-37.0) g/dL Plt Count (150-450) k/uL Lymphocytes # (Manual) (1.0-4.8) k/uL Metamyelocytes # (Man) (0) k/uL Nucleated RBCs (0-0) /100 WBC Macrocytosis PT (9.0-12.0) sec INR (<1.2) APTT (22.0-30.0) sec Fibrinogen (200-500) mg/dL ABG pH (7.35-7.45) ABG pCO2 (35-45) mmHg ABG pO2 (83-108) mmHg ABG HCO3 (21-25) mmol/L ABG Total CO2 (19-24) mmol/L Sodium 134 L (137-145) mmol/L Potassium 2.5 L* (3.5-5.1) mmol/L Chloride (98-107) mmol/L Carbon Dioxide 11 L (22-30) mmol/L Creatinine 1.59 H (0.52-1.04) mg/dL Glucose (74-99) mg/dL POC Glucose (mg/dL) (75-99) mg/dL Plasma Lactic Acid Sadiq (0.7-2.0) mmol/L Calcium 5.8 L* (8.4-10.2) mg/dL Ionized Calcium Ailin 3.7 L (4.5-5.3) mg/dL Iron 38 L (50-170) ug/dL TIBC 42 L (228-460) ug/dL % Saturation 90.19 H (12.00-45.00) Transferrin 29.7 L (204.0-354.0) mg/dL Ferritin 924.0 H (10.0-291.0) ng/mL Total Bilirubin (0.2-1.3) mg/dL AST (14-36) U/L ALT (4-34) U/L Total Protein (6.3-8.2) g/dL Albumin (3.5-5.0) g/dL Ceruloplasmin 7.3 L (20.0-60.0) mg/dL Vitamin B12 >2000.0 H (200.0-944.0) pg/mL Urine Appearance (Clear) Urine Protein (Negative) Urine Blood (Negative) Urine Bilirubin (Negative) Ur Leukocyte Esterase (Negative) Urine RBC (0-5) /hpf Urine WBC (0-5) /hpf Urine WBC Clumps (None) /hpf Amorphous Sediment (None) /hpf Urine Bacteria (None) /hpf Hyaline Casts (0-2) /lpf Urine Mucus (None) /hpf 05/05/21 05/05/21 05/05/21 Range/Units 18:15 18:30 21:15 WBC (3.8-10.6) k/uL RBC (3.80-5.40) m/uL Hgb (11.4-16.0) gm/dL Hct (34.0-46.0) % MCV (80.0-100.0) fL MCH (25.0-35.0) pg MCHC (31.0-37.0) g/dL Plt Count (150-450) k/uL Lymphocytes # (Manual) (1.0-4.8) k/uL Metamyelocytes # (Man) (0) k/uL Nucleated RBCs (0-0) /100 WBC Macrocytosis PT (9.0-12.0) sec INR (<1.2) APTT (22.0-30.0) sec Fibrinogen (200-500) mg/dL ABG pH 7.27 L (7.35-7.45) ABG pCO2 24 L (35-45) mmHg ABG pO2 (83-108) mmHg ABG HCO3 11 L (21-25) mmol/L ABG Total CO2 12 L (19-24) mmol/L Sodium (137-145) mmol/L Potassium (3.5-5.1) mmol/L Chloride (98-107) mmol/L Carbon Dioxide (22-30) mmol/L Creatinine (0.52-1.04) mg/dL Glucose (74-99) mg/dL POC Glucose (mg/dL) (75-99) mg/dL Plasma Lactic Acid Sadiq 11.8 H* 13.7 H* (0.7-2.0) mmol/L Calcium (8.4-10.2) mg/dL Ionized Calcium Ailin (4.5-5.3) mg/dL Iron (50-170) ug/dL TIBC (228-460) ug/dL % Saturation (12.00-45.00) Transferrin (204.0-354.0) mg/dL Ferritin (10.0-291.0) ng/mL Total Bilirubin (0.2-1.3) mg/dL AST (14-36) U/L ALT (4-34) U/L Total Protein (6.3-8.2) g/dL Albumin (3.5-5.0) g/dL Ceruloplasmin (20.0-60.0) mg/dL Vitamin B12 (200.0-944.0) pg/mL Urine Appearance (Clear) Urine Protein (Negative) Urine Blood (Negative) Urine Bilirubin (Negative) Ur Leukocyte Esterase (Negative) Urine RBC (0-5) /hpf Urine WBC (0-5) /hpf Urine WBC Clumps (None) /hpf Amorphous Sediment (None) /hpf Urine Bacteria (None) /hpf Hyaline Casts (0-2) /lpf Urine Mucus (None) /hpf 05/05/21 05/05/21 05/05/21 Range/Units 21:45 22:46 22:49 WBC (3.8-10.6) k/uL RBC (3.80-5.40) m/uL Hgb (11.4-16.0) gm/dL Hct (34.0-46.0) % MCV (80.0-100.0) fL MCH (25.0-35.0) pg MCHC (31.0-37.0) g/dL Plt Count (150-450) k/uL Lymphocytes # (Manual) (1.0-4.8) k/uL Metamyelocytes # (Man) (0) k/uL Nucleated RBCs (0-0) /100 WBC Macrocytosis PT (9.0-12.0) sec INR (<1.2) APTT (22.0-30.0) sec Fibrinogen (200-500) mg/dL ABG pH <6.80 L* (7.35-7.45) ABG pCO2 (35-45) mmHg ABG pO2 228 H (83-108) mmHg ABG HCO3 6 L* (21-25) mmol/L ABG Total CO2 7 L (19-24) mmol/L Sodium 134 L (137-145) mmol/L Potassium 5.7 H (3.5-5.1) mmol/L Chloride 111 H (98-107) mmol/L Carbon Dioxide <5 L* (22-30) mmol/L Creatinine (0.52-1.04) mg/dL Glucose (74-99) mg/dL POC Glucose (mg/dL) 146 H (75-99) mg/dL Plasma Lactic Acid Sadiq (0.7-2.0) mmol/L Calcium 5.6 L* (8.4-10.2) mg/dL Ionized Calcium Ailin (4.5-5.3) mg/dL Iron (50-170) ug/dL TIBC (228-460) ug/dL % Saturation (12.00-45.00) Transferrin (204.0-354.0) mg/dL Ferritin (10.0-291.0) ng/mL Total Bilirubin (0.2-1.3) mg/dL AST (14-36) U/L ALT (4-34) U/L Total Protein (6.3-8.2) g/dL Albumin (3.5-5.0) g/dL Ceruloplasmin (20.0-60.0) mg/dL Vitamin B12 (200.0-944.0) pg/mL Urine Appearance (Clear) Urine Protein (Negative) Urine Blood (Negative) Urine Bilirubin (Negative) Ur Leukocyte Esterase (Negative) Urine RBC (0-5) /hpf Urine WBC (0-5) /hpf Urine WBC Clumps (None) /hpf Amorphous Sediment (None) /hpf Urine Bacteria (None) /hpf Hyaline Casts (0-2) /lpf Urine Mucus (None) /hpf 05/05/21 05/05/21 05/05/21 Range/Units 23:01 23:02 23:58 WBC (3.8-10.6) k/uL RBC (3.80-5.40) m/uL Hgb (11.4-16.0) gm/dL Hct (34.0-46.0) % MCV (80.0-100.0) fL MCH (25.0-35.0) pg MCHC (31.0-37.0) g/dL Plt Count (150-450) k/uL Lymphocytes # (Manual) (1.0-4.8) k/uL Metamyelocytes # (Man) (0) k/uL Nucleated RBCs (0-0) /100 WBC Macrocytosis PT (9.0-12.0) sec INR (<1.2) APTT (22.0-30.0) sec Fibrinogen (200-500) mg/dL ABG pH (7.35-7.45) ABG pCO2 (35-45) mmHg ABG pO2 (83-108) mmHg ABG HCO3 (21-25) mmol/L ABG Total CO2 (19-24) mmol/L Sodium (137-145) mmol/L Potassium (3.5-5.1) mmol/L Chloride (98-107) mmol/L Carbon Dioxide (22-30) mmol/L Creatinine (0.52-1.04) mg/dL Glucose (74-99) mg/dL POC Glucose (mg/dL) <20 L <20 L (75-99) mg/dL Plasma Lactic Acid Sadiq 20.1 H* (0.7-2.0) mmol/L Calcium (8.4-10.2) mg/dL Ionized Calcium Ailin (4.5-5.3) mg/dL Iron (50-170) ug/dL TIBC (228-460) ug/dL % Saturation (12.00-45.00) Transferrin (204.0-354.0) mg/dL Ferritin (10.0-291.0) ng/mL Total Bilirubin (0.2-1.3) mg/dL AST (14-36) U/L ALT (4-34) U/L Total Protein (6.3-8.2) g/dL Albumin (3.5-5.0) g/dL Ceruloplasmin (20.0-60.0) mg/dL Vitamin B12 (200.0-944.0) pg/mL Urine Appearance (Clear) Urine Protein (Negative) Urine Blood (Negative) Urine Bilirubin (Negative) Ur Leukocyte Esterase (Negative) Urine RBC (0-5) /hpf Urine WBC (0-5) /hpf Urine WBC Clumps (None) /hpf Amorphous Sediment (None) /hpf Urine Bacteria (None) /hpf Hyaline Casts (0-2) /lpf Urine Mucus (None) /hpf 05/06/21 05/06/21 05/06/21 Range/Units 00:00 03:55 03:55 WBC 2.9 L (3.8-10.6) k/uL RBC 1.94 L (3.80-5.40) m/uL Hgb 7.4 L D (11.4-16.0) gm/dL Hct 24.7 L (34.0-46.0) % MCV 127.2 H D (80.0-100.0) fL MCH 38.0 H (25.0-35.0) pg MCHC 29.9 L (31.0-37.0) g/dL Plt Count 49 L D (150-450) k/uL Lymphocytes # (Manual) 0.29 L (1.0-4.8) k/uL Metamyelocytes # (Man) 0.06 H (0) k/uL Nucleated RBCs 4 H (0-0) /100 WBC Macrocytosis Marked A PT 35.6 H (9.0-12.0) sec INR 3.6 H (<1.2) APTT 91.8 H (22.0-30.0) sec Fibrinogen 180 L (200-500) mg/dL ABG pH (7.35-7.45) ABG pCO2 (35-45) mmHg ABG pO2 (83-108) mmHg ABG HCO3 (21-25) mmol/L ABG Total CO2 (19-24) mmol/L Sodium (137-145) mmol/L Potassium (3.5-5.1) mmol/L Chloride (98-107) mmol/L Carbon Dioxide (22-30) mmol/L Creatinine (0.52-1.04) mg/dL Glucose (74-99) mg/dL POC Glucose (mg/dL) 126 H (75-99) mg/dL Plasma Lactic Acid Sadiq (0.7-2.0) mmol/L Calcium (8.4-10.2) mg/dL Ionized Calcium Ailin (4.5-5.3) mg/dL Iron (50-170) ug/dL TIBC (228-460) ug/dL % Saturation (12.00-45.00) Transferrin (204.0-354.0) mg/dL Ferritin (10.0-291.0) ng/mL Total Bilirubin (0.2-1.3) mg/dL AST (14-36) U/L ALT (4-34) U/L Total Protein (6.3-8.2) g/dL Albumin (3.5-5.0) g/dL Ceruloplasmin (20.0-60.0) mg/dL Vitamin B12 (200.0-944.0) pg/mL Urine Appearance (Clear) Urine Protein (Negative) Urine Blood (Negative) Urine Bilirubin (Negative) Ur Leukocyte Esterase (Negative) Urine RBC (0-5) /hpf Urine WBC (0-5) /hpf Urine WBC Clumps (None) /hpf Amorphous Sediment (None) /hpf Urine Bacteria (None) /hpf Hyaline Casts (0-2) /lpf Urine Mucus (None) /hpf 05/06/21 05/06/21 05/06/21 Range/Units 03:55 03:55 03:55 WBC (3.8-10.6) k/uL RBC (3.80-5.40) m/uL Hgb (11.4-16.0) gm/dL Hct (34.0-46.0) % MCV (80.0-100.0) fL MCH (25.0-35.0) pg MCHC (31.0-37.0) g/dL Plt Count (150-450) k/uL Lymphocytes # (Manual) (1.0-4.8) k/uL Metamyelocytes # (Man) (0) k/uL Nucleated RBCs (0-0) /100 WBC Macrocytosis PT (9.0-12.0) sec INR (<1.2) APTT (22.0-30.0) sec Fibrinogen (200-500) mg/dL ABG pH (7.35-7.45) ABG pCO2 (35-45) mmHg ABG pO2 (83-108) mmHg ABG HCO3 (21-25) mmol/L ABG Total CO2 (19-24) mmol/L Sodium (137-145) mmol/L Potassium (3.5-5.1) mmol/L Chloride 112 H (98-107) mmol/L Carbon Dioxide 6 L* (22-30) mmol/L Creatinine 1.75 H (0.52-1.04) mg/dL Glucose 107 H (74-99) mg/dL POC Glucose (mg/dL) 126 H (75-99) mg/dL Plasma Lactic Acid Sadiq 16.8 H* (0.7-2.0) mmol/L Calcium 6.0 L* (8.4-10.2) mg/dL Ionized Calcium Ailin 4.1 L (4.5-5.3) mg/dL Iron (50-170) ug/dL TIBC (228-460) ug/dL % Saturation (12.00-45.00) Transferrin (204.0-354.0) mg/dL Ferritin (10.0-291.0) ng/mL Total Bilirubin 1.5 H (0.2-1.3) mg/dL AST 212 H (14-36) U/L ALT 56 H (4-34) U/L Total Protein 2.3 L (6.3-8.2) g/dL Albumin 1.1 L (3.5-5.0) g/dL Ceruloplasmin (20.0-60.0) mg/dL Vitamin B12 (200.0-944.0) pg/mL Urine Appearance (Clear) Urine Protein (Negative) Urine Blood (Negative) Urine Bilirubin (Negative) Ur Leukocyte Esterase (Negative) Urine RBC (0-5) /hpf Urine WBC (0-5) /hpf Urine WBC Clumps (None) /hpf Amorphous Sediment (None) /hpf Urine Bacteria (None) /hpf Hyaline Casts (0-2) /lpf Urine Mucus (None) /hpf 05/06/21 05/06/21 Range/Units 05:16 05:16 WBC (3.8-10.6) k/uL RBC (3.80-5.40) m/uL Hgb (11.4-16.0) gm/dL Hct (34.0-46.0) % MCV (80.0-100.0) fL MCH (25.0-35.0) pg MCHC (31.0-37.0) g/dL Plt Count (150-450) k/uL Lymphocytes # (Manual) (1.0-4.8) k/uL Metamyelocytes # (Man) (0) k/uL Nucleated RBCs (0-0) /100 WBC Macrocytosis PT (9.0-12.0) sec INR (<1.2) APTT (22.0-30.0) sec Fibrinogen (200-500) mg/dL ABG pH 6.83 L* (7.35-7.45) ABG pCO2 29 L (35-45) mmHg ABG pO2 157 H (83-108) mmHg ABG HCO3 5 L* (21-25) mmol/L ABG Total CO2 6 L (19-24) mmol/L Sodium (137-145) mmol/L Potassium (3.5-5.1) mmol/L Chloride (98-107) mmol/L Carbon Dioxide (22-30) mmol/L Creatinine (0.52-1.04) mg/dL Glucose (74-99) mg/dL POC Glucose (mg/dL) 141 H (75-99) mg/dL Plasma Lactic Acid Sadiq (0.7-2.0) mmol/L Calcium (8.4-10.2) mg/dL Ionized Calcium Ailin (4.5-5.3) mg/dL Iron (50-170) ug/dL TIBC (228-460) ug/dL % Saturation (12.00-45.00) Transferrin (204.0-354.0) mg/dL Ferritin (10.0-291.0) ng/mL Total Bilirubin (0.2-1.3) mg/dL AST (14-36) U/L ALT (4-34) U/L Total Protein (6.3-8.2) g/dL Albumin (3.5-5.0) g/dL Ceruloplasmin (20.0-60.0) mg/dL Vitamin B12 (200.0-944.0) pg/mL Urine Appearance (Clear) Urine Protein (Negative) Urine Blood (Negative) Urine Bilirubin (Negative) Ur Leukocyte Esterase (Negative) Urine RBC (0-5) /hpf Urine WBC (0-5) /hpf Urine WBC Clumps (None) /hpf Amorphous Sediment (None) /hpf Urine Bacteria (None) /hpf Hyaline Casts (0-2) /lpf Urine Mucus (None) /hpf Microbiology - Last 24 Hours (Table) 05/05/21 07:00 Blood Culture Gram Stain - Preliminary Blood Blood Culture - Preliminary Escherichia coli 05/05/21 07:16 Blood Culture Gram Stain - Preliminary Blood 05/05/21 07:16 Blood Culture - Final Blood 05/05/21 07:00 Blood Culture - Final Blood 05/05/21 09:44 Urine Culture - Preliminary Urine,Catheterized Assessment and Plan Assessment: Acute hypoxemic respiratory failure, requiring intubation and mechanical ventilation, on 05/05/2021. Status post cardiopulmonary arrest 3, with cardiopulmonary resuscitation, and eventual return of spontaneous circulation. Urinary tract infection, with urosepsis and septic shock, secondary to Escheric hia coli. History of chronic alcohol abuse, and chronic liver disease, and acute liver failure. Profound hypoalbuminemia, and lower extremity edema. Severe anion gap metabolic acidosis. Hypocalcemia. History of hypertension. Chronic alcohol abuse. Chronic tobacco abuse. Profound electrolyte disturbances. Pancytopenia. Alcohol-induced coagulopathy. Lactic acidosis secondary to infection/shock. Transaminitis secondary to alcoholic liver disease. Plan: Plan dated 05/05/2021. The patient's placed on Rocephin for her urinary tract infection. She's getting fluid resuscitation. She needs electrolyte replenishment. She is at high risk for alcohol withdraw syndrome. She likely has underlying COPD as well. We will continue to follow make recommendations where appropriate. Prognosis is guarded. She did receive 3 L of fluid in the emergency department. Additional recommendations and suggestions are forthcoming. Plan dated 05/06/2021. The patient's clinical status is significantly declined. The patient has undergone 3 episodes of cardiopulmonary arrest with cardiopulmonary resuscitation and eventual return of spontaneous circulation. The patient is quite ill, and likely not recover from this illness. I did speak to the twice, and the son once. They did make the patient a DO NOT RESUSCITATE. They want to continue with life support. They do not want her to have cardiopulmonary resuscitation again, should she have another arrest. I did ex plain to the family, that the big issue with liver failure, from chronic alcohol abuse. The patient apparently drinks 1-1/2 bottles of wine every day and has been doing that for 40 years, according to her . Additional recommendations and suggestions are forthcoming. Prognosis is obviously very poor. Time with Patient: Greater than 30
[2021-05-06] MEDS: SODIUM CHLORIDE 0.9% 150 ML with VASOPRESSIN 60 UNIT IV SCH ×2 (09:31)
[2021-05-06 09:37] VITALS: RESP 30
[2021-05-06] MEDS: MAGNESIUM OXIDE 400 MG TAB PO SCH (09:49)
[2021-05-06 11:41] VITALS: BP 97/32; PULSE 80
--- NOTE | 2021-05-06 16:39 | P.DS ---
Providers Date of admission: 05/05/21 12:07 Expected date of discharge: 05/06/21 Attending physician: Rand Gomez DO Consults: 05/05/21 12:07 Consult Physician Stat Consulting Provider: Riaz Stanton Consult Reason/Comments: Critical care management Do you want consulting provider notified?: Yes 05/05/21 14:34 Consult Physician Routine Consulting Provider: Brent Lewis Consult Reason/Comments: JEYSON vs CKD Do you want consulting provider notified?: Yes 05/05/21 19:15 Consult Physician Routine Consulting Provider: Adriano Lobato Consult Reason/Comments: Gram + bacteremia Do you want consulting provider notified?: Yes Primary care physician: Cindi Lezama MD Hospital Course: Discharge Diagnosis: UTI, POA ardiac arrest X 3 with ROSC E coli bacteremia Septic SHock Acute hypoxic respiratory failure DIC, Coagulopathy Multiogan system dysfunction Hypomagnesemia Hypocalcemia Hypoglycemia Hyponatremia Severe Lactic acidosis JEYSON Transamintis due to alcoholi iliver disease suspect underlying cirrhosis Severe Proteincalorie malnutrition ETOH abuse Pancytopenia Hx ETOH abuse Hospital Course: is a 60 yo CF with a hx of HTN in the past no longer on medications who presetned to the ED with complaints of weakness and decreased responsiveness. In the ED she underwent an extensive evaluation. On arrival she was found have a blood pressure of 88/62. Initial laboratory analysis showed white blood cell count of 1.8, hemoglobin 8.5, platelets 157, INR 2.3, PTT 40.1, PTT 22.7, sodium 131, potassium 2.2, carbon dioxide 19, creatinine 1.63, initial glucose was less than 20. Lactic acid was significantly elevated at 5.3 and then elevated to 9.7. Calcium low at 4.8, magnesium 0.5, total bilirubin 2.1, AST 434, ALT 98. She was also found to have significant hypoalbuminemia at 1.5. Urinalysis was consistent with urinary tract infection. COVID-19 testing was negative. New small bilateral pleural effusions were noted on chest x-ray. CT abdomen and pelvis showed hepatomegaly with underlying hepatic steatosis, nonspecific enterocolitis, ascites with pleural effusion, and sigmoid diverticulosis without diverticulitis. Left lower extremity was negative for DVT. In the ER she became increasingly hypotensive requiring levophed drip. She received 2 L of normal saline as well as albumin. She was given a dose of Rocephin, Solu- Cortef, albumin, magnesium, and potassium in the ER. Arrangements were made for admission to the ICU. She continued to decline become more hypotensive in the ICU requiring increasing vasopressors. Her lactic acid began to rise. She was continued on Solu-Cortef, levo. She came back with gram-negative bacteremia. She continued to decline and ultimately required intubation. She then had 3 separate episodes of cardiac arrest each lasting approximately 6 minutes for a total of 18 minutes of downtime. She was maxed out on vasopressin, epinephrine, norepinephrine. She was also on a bicarb drip. She continued to have severe acidosis with a pH of 6.8. She received additional potassium, magnesium, and calcium supplementation. She developed bleeding from her IV sites and oral airways. Laboratory analysis was consistent with DIC and her weight. To 49. I discussed with the and recommended DO NOT RESUSCITATE status. Despite aggressive continued care of the patient at 1152 on 05/06/21. Patient seen and examined at bedside. Events from today as noted in CODE BLUE note as well as above. Vital signs reviewed and stable. Exam: Pupils fixed and dilated, absent heart sounds, no palpable pulses, decreased skin turgor. Patient was not breathing over the vent and had no respirations with vent was turned off after she was pronounced. A total of 37 minutes of time were spent preparing this complex discharge summary . Plan - Discharge Summary Discharge Rx Participant: No New Discharge Prescriptions: No Action Hydrocodone/Acetaminophen [Hydrocodon-Acetaminoph 7.5-325] 1 tab PO QID PRN PRN Reason: Pain hydroCHLOROthiazide [Hydrodiuril] 12.5 mg PO DAILY amLODIPine [Norvasc] 5 mg PO DAILY Pantoprazole [Protonix] 40 mg PO DAILY Discharge Medication List Hydrocodone/Acetaminophen [Hydrocodon-Acetaminoph 7.5-325] 1 tab PO QID PRN 06/01/17 [History] hydroCHLOROthiazide [Hydrodiuril] 12.5 mg PO DAILY 02/21/20 [History] Pantoprazole [Protonix] 40 mg PO DAILY 05/05/21 [History] amLODIPine [Norvasc] 5 mg PO DAILY 05/05/21 [History] Follow up Appointment(s)/Referral(s): Cindi Lezama MD [Primary Care Provider] - 1-2 days Discharge Disposition: - Preliminary Cause of Preliminary Cause of : septic shock
[2021-05-06] MEDS ORDERED: MIDODRINE 5 MG TAB PO ONE (19:00)
[2021-05-07 20:01] LABS: EBV-EA (IgG) <0.2 AI; EBV-EBNA(IgG) 7.1 AI; EBV-VCA (IgG) 0.4 AI; EBV-VCA (IgM) <0.2 AI
== END 2021-05-06 13:28 | disposition expired | DRG 871 ==
LOC: EC 06:31 → 2SICU 12:07
PROVIDERS: ADMIT Internal Medicine; ATTEND Internal Medicine
PROC: 5A1935Z Respiratory Ventilation, Less than 24 Consecutive Hours (ICD-10-PCS; principal; 2021-05-05)
PROC: 3E033XZ Introduction of Vasopressor into Peripheral Vein, Percutaneous Approach (ICD-10-PCS; principal; 2021-05-05)
PROC: 0BH17EZ Insertion of Endotracheal Airway into Trachea, Via Natural or Artificial Opening (ICD-10-PCS; principal; 2021-05-05)
DX: A41.51 Sepsis due to Escherichia coli [E. coli] (principal); R65.21 Severe sepsis with septic shock; D65 Disseminated intravascular coagulation [defibrination syndrome]; E43 Unspecified severe protein-calorie malnutrition; J96.01 Acute respiratory failure with hypoxia; N17.0 Acute kidney failure with tubular necrosis; K72.00 Acute and subacute hepatic failure without coma; N39.0 Urinary tract infection, site not specified; E87.1 Hypo-osmolality and hyponatremia; E87.2 Acidosis; D61.818 Other pancytopenia; J90 Pleural effusion, not elsewhere classified; E83.42 Hypomagnesemia; E83.51 Hypocalcemia; E87.6 Hypokalemia; I46.9 Cardiac arrest, cause unspecified; Z20.822 Contact with and (suspected) exposure to COVID-19; F10.10 Alcohol abuse, uncomplicated; F17.210 Nicotine dependence, cigarettes, uncomplicated; I10 Essential (primary) hypertension; Z66 Do not resuscitate; E87.70 Fluid overload, unspecified; E16.2 Hypoglycemia, unspecified; E88.09 Other disorders of plasma-protein metabolism, not elsewhere classified; G62.1 Alcoholic polyneuropathy; K52.9 Noninfective gastroenteritis and colitis, unspecified; K57.30 Diverticulosis of large intestine without perforation or abscess without bleeding; M06.9 Rheumatoid arthritis, unspecified; K70.31 Alcoholic cirrhosis of liver with ascites; T50.2X5A Adverse effect of carbonic-anhydrase inhibitors, benzothiadiazides and other diuretics, initial encounter; K44.9 Diaphragmatic hernia without obstruction or gangrene; Z87.19 Personal history of other diseases of the digestive system; Z79.899 Other long term (current) drug therapy; Z68.23 Body mass index [BMI] 23.0-23.9, adult; Z86.010 Personal history of colon polyps; Z80.3 Family history of malignant neoplasm of breast; Z98.890 Other specified postprocedural states; Z81.8 Family history of other mental and behavioral disorders; Z88.8 Allergy status to other drugs, medicaments and biological substances; Z91.041 Radiographic dye allergy status
CPT/HCPCS: 36415; 36600; 71045; 71046; 74176; 80048; 80051; 80053; 80074; 80320; 81001; 82105; 82140; 82310; 82330; 82390; 82533; 82607; 82728; 82747; 82805; 82947; 83516; 83540; 83550; 83605; 83735; 84484; 85025; 85045; 85384; 85610; 85730; 86038; 86039; 86645; 86663; 86664; 86665; 86709; 86850; 86900; 86901; 87040; 87077; 87086; 87186; 87635; 93005; 93306; 94002; 94003; 96361; 96365; 96366; 96367; 96375; 99291